=== PATIENT | male | born 1955 | race Caucasian/White ===

== ENCOUNTER 2019-04-21 18:23 | Emergency (ER) | payer BC, MEDICAID, MEDICARE, OTHER ==
[2019-04-21] MEDS ORDERED: Nitroglycerin 0.4 MG Tab.SL SL PRN (19:04)
[2019-04-21] MEDS ORDERED: Morphine 4 MG/ML Syringe IVPUSH PRN (19:04)
--- NOTE | 2019-04-21 19:09 | EDM.PDOC ---
ED HPI GENERAL MEDICAL PROBLEM - General Chief Complaint: Chest Pain Stated Complaint: HIGH BP AND L SHOULDER PAIN Time Seen by Provider: 04/21/19 18:36 Source of Information: Reports: Patient, Family, RN Notes Reviewed History Limitations: Reports: No Limitations - History of Present Illness INITIAL COMMENTS - FREE TEXT/NARRATIVE: 63-year-old gentleman presents emergency department today complaint of chest pain, he describes the chest pain and left side of his chest with radiation down the arm and up into the neck. He states started about 4 hours ago no diaphoresis no nausea vomiting he does not feel more short of breath than usual. Does have past medical history of COPD as well as coronary artery disease and myocardial infarction in the past 8 Pain Score (Numeric/FACES): 0 - Related Data Allergies Allergy/AdvReac Type Severity Reaction Status Date / Time No Known Allergies Allergy Verified 04/21/19 18:33 Home Meds: Home Meds Albuterol Sulfate [Albuterol Sulfate Hfa] 2 puff INH Q6H PRN 04/21/19 [History] Allopurinol [Zyloprim] 300 mg PO DAILY 04/21/19 [History] Aspirin [Lite Coat Aspirin] 1 tab PO DAILY 04/21/19 [History] Budesonide/Formoterol [Symbicort 160-4.5 MCG] 2 puff INH BID 04/21/19 [History] Cholecalciferol (Vitamin D3) [D3-2000] 400 units PO BID 04/21/19 [History] Clotrimazole [Clotrimazole 1%] 1 dose TOP BID PRN 04/21/19 [History] Hydrophilic Ointment [Hydrophilic] 120 gm TP QID PRN 04/21/19 [History] Lisinopril 1 tab PO DAILY 04/21/19 [History] Omeprazole 20 mg PO DAILY 04/21/19 [History] Sildenafil Citrate 50 mg PO ASDIRECTED PRN 04/21/19 [History] Tiotropium [Spiriva HandiHaler] 2 puff INH DAILY 04/21/19 [History] atorvaSTATin [Lipitor] 80 mg PO DAILY 04/21/19 [History] Past Medical History Cardiovascular History: Reports: CAD, High Cholesterol, Hypertension, [place], Stents Respiratory History: Reports: COPD Musculoskeletal History: Reports: Gout Dermatologic History: Reports: Urticaria - Past Surgical History Cardiovascular Surgical History: Reports: AAA Repair, Coronary Artery Stent GI Surgical History: Reports: Cholecystectomy Social & Family History - Tobacco Use Smoking Status *Q: Current Every Day Smoker Years of Tobacco use: 45 Packs/Tins Daily: 1 ED ROS GENERAL - Review of Systems Review Of Systems: See Below Constitutional: Reports: No Symptoms HEENT: Reports: No Symptoms Respiratory: Reports: No Symptoms Cardiovascular: Reports: Chest Pain GI/Abdominal: Reports: No Symptoms ED EXAM, GENERAL - Physical Exam Exam: See Below Exam Limited By: No Limitations General Appearance: Alert, WD/WN, No Apparent Distress Neck: Normal Inspection, Supple, Non-Tender, Full Range of Motion Respiratory/Chest: No Respiratory Distress, No Accessory Muscle Use, Decreased Breath Sounds, Wheezing, Other (Tender with palpitations) Cardiovascular: Regular Rate, Rhythm, No Murmur GI/Abdominal: Soft, Non-Tender Extremities: Normal Range of Motion, Non-Tender, No Pedal Edema Course - Vital Signs Last Recorded V/S: Last Vital Signs Temp 97.9 F 04/21/19 23:00 Pulse 90 04/21/19 23:00 Resp 14 04/21/19 23:00 BP 141/89 H 04/21/19 23:00 Pulse Ox 94 L 04/21/19 23:00 - Orders/Labs/Meds Orders: Active Orders 24 hr Category Date Time Status Cardiac Monitoring [RC] .As Directed Care 04/21/19 19:04 Active Communication Order [RC] STAT Care 04/21/19 19:06 Active EKG Documentation Completion [RC] ASDIRECTED Care 04/21/19 19:05 Active Peripheral IV Care [RC] . DIRECTED Care 04/21/19 19:05 Active Morphine Med 04/21/19 19:04 Active 4 mg IVPUSH Q10M PRN Nitroglycerin [Nitrostat] Med 04/21/19 19:04 Active 0.4 mg SL Q5M PRN Sodium Chloride 0.9% [Saline Flush] Med 04/21/19 19:04 Active 10 ml FLUSH ASDIRECTED PRN Peripheral IV Insertion Adult [OM.PC] Stat Oth 04/21/19 19:04 Ordered Saline Lock Insert [OM.PC] Stat Oth 04/21/19 19:04 Ordered EKG 12 Lead [EK] Stat Ther 04/21/19 19:05 Ordered Medication Orders Morphine Sulfate (Morphine) 4 mg IVPUSH Q10M PRN PRN Reason: Chest Pain Stop: 04/22/19 19:05 Last Admin: 04/21/19 19:22 Dose: 4 mg Nitroglycerin (Nitrostat) 0.4 mg SL Q5M PRN PRN Reason: Chest Pain Stop: 04/22/19 19:05 Last Admin: 04/21/19 19:21 Dose: 0.4 mg Sodium Chloride (Saline Flush) 10 ml FLUSH ASDIRECTED PRN PRN Reason: Keep Vein Open Last Admin: 04/21/19 19:24 Dose: 10 ml Admin: 04/21/19 19:21 Dose: 10 ml Labs: Laboratory Tests 04/21/19 04/21/19 04/21/19 Range/Units 19:15 19:15 19:15 WBC 10.4 (4.5-11.0) K/uL RBC 5.34 (4.30-5.90) M/uL Hgb 16.4 H (12.0-15.0) g/dL Hct 50.5 (40.0-54.0) % MCV 95 (80-98) fL MCH 31 (27-31) pg MCHC 33 (32-36) % Plt Count 212 (150-400) K/uL Neut % (Auto) 44 (36-66) % Lymph % (Auto) 39 (24-44) % [place] % (Auto) 12 H (2-6) % Eos % (Auto) 4 (2-4) % Baso % (Auto) 1 (0-1) % Sodium 142 (140-148) mmol/L Potassium 4.8 (3.6-5.2) mmol/L Chloride 106 (100-108) mmol/L Carbon Dioxide 29 (21-32) mmol/L Anion Gap 7.1 (5.0-14.0) mmol/L BUN 13 (7-18) mg/dL Creatinine 0.9 (0.8-1.3) mg/dL Est Cr Clr Drug Dosing 93.71 mL/min Estimated GFR (MDRD) > 60 (>60) Glucose 104 (74-106) mg/dL Lactic Acid 2.2 H (0.4-2.0) mmol/L Calcium 9.5 (8.5-10.1) mg/dL Total Bilirubin 0.9 (0.2-1.0) mg/dL AST 21 (15-37) U/L ALT 26 (12-78) U/L Alkaline Phosphatase 116 (46-116) U/L Troponin I < 0.017 (0.000-0.056) ng/mL Total Protein 7.7 (6.4-8.2) g/dL Albumin 3.8 (3.4-5.0) g/dL Globulin 3.9 H (2.3-3.5) g/dL Albumin/Globulin Ratio 1.0 L (1.2-2.2) 04/21/19 Range/Units 23:25 WBC (4.5-11.0) K/uL RBC (4.30-5.90) M/uL Hgb (12.0-15.0) g/dL Hct (40.0-54.0) % MCV (80-98) fL MCH (27-31) pg MCHC (32-36) % Plt Count (150-400) K/uL Neut % (Auto) (36-66) % Lymph % (Auto) (24-44) % [place] % (Auto) (2-6) % Eos % (Auto) (2-4) % Baso % (Auto) (0-1) % Sodium (140-148) mmol/L Potassium (3.6-5.2) mmol/L Chloride (100-108) mmol/L Carbon Dioxide (21-32) mmol/L Anion Gap (5.0-14.0) mmol/L BUN (7-18) mg/dL Creatinine (0.8-1.3) mg/dL Est Cr Clr Drug Dosing mL/min Estimated GFR (MDRD) (>60) Glucose (74-106) mg/dL Lactic Acid (0.4-2.0) mmol/L Calcium (8.5-10.1) mg/dL Total Bilirubin (0.2-1.0) mg/dL AST (15-37) U/L ALT (12-78) U/L Alkaline Phosphatase (46-116) U/L Troponin I < 0.017 (0.000-0.056) ng/mL Total Protein (6.4-8.2) g/dL Albumin (3.4-5.0) g/dL Globulin (2.3-3.5) g/dL Albumin/Globulin Ratio (1.2-2.2) Meds: Medications Generic Name Dose Route Start Last Admin Trade Name Freq PRN Reason Stop Dose Admin Morphine Sulfate 4 mg 04/21/19 19:04 04/21/19 19:22 Morphine IVPUSH 04/22/19 19:05 4 mg Q10M PRN Administration Chest Pain Nitroglycerin 0.4 mg 04/21/19 19:04 04/21/19 19:21 Nitrostat SL 04/22/19 19:05 0.4 mg Q5M PRN Administration Chest Pain Sodium Chloride 10 ml 04/21/19 19:04 04/21/19 19:24 Saline Flush FLUSH 10 ml ASDIRECTED PRN Administration Keep Vein Open - Re-Assessments/Exams Free Text/Narrative Re-Assessment/Exam: 04/21/19 20:10 heart score is 4 moderate risk, EDACS 21 not low risk Departure - Departure Time of Disposition: 00:08 Disposition: Home, Self-Care 01 Condition: Fair Clinical Impression: Atypical chest pain Referrals: PCP,None [Primary Care Provider] - Forms: ED Department Discharge Additional Instructions: Use Tylenol or Motrin as needed for pain control, Please followup with your primary care provider in 3-5 days if not better, please call return to the emergency department with worsening of symptoms. - My Orders Last 24 Hours: My Active Orders 04/21/19 19:04 Cardiac Monitoring [RC] .As Directed Morphine 4 mg IVPUSH Q10M PRN Nitroglycerin [Nitrostat] 0.4 mg SL Q5M PRN Sodium Chloride 0.9% [Saline Flush] 10 ml FLUSH ASDIRECTED PRN Peripheral IV Insertion Adult [OM.PC] Stat Saline Lock Insert [OM.PC] Stat 04/21/19 19:05 EKG Documentation Completion [RC] ASDIRECTED Peripheral IV Care [RC] . DIRECTED EKG 12 Lead [EK] Stat 04/21/19 19:06 Communication Order [RC] STAT - Assessment/Plan Last 24 Hours: My Active Orders 04/21/19 19:04 Cardiac Monitoring [RC] .As Directed Morphine 4 mg IVPUSH Q10M PRN Nitroglycerin [Nitrostat] 0.4 mg SL Q5M PRN Sodium Chloride 0.9% [Saline Flush] 10 ml FLUSH ASDIRECTED PRN Peripheral IV Insertion Adult [OM.PC] Stat Saline Lock Insert [OM.PC] Stat 04/21/19 19:05 EKG Documentation Completion [RC] ASDIRECTED Peripheral IV Care [RC] . DIRECTED EKG 12 Lead [EK] Stat 04/21/19 19:06 Communication Order [RC] STAT Plan: Assessment Acuity = acute Site and laterality = atypical chest pain Etiology = unknown etiology Manifestations = none Location of injury = Home Lab values = CBC, CMP, troponin negative 2 EKG demonstrates sinus rhythm no signs of ischemia chest x-ray unremarkable Plan He remained chest pain-free after initial treatment, him follow-up with his primary care in next 3-5 days for further evaluation This note was dictated using [employer] voice recognition software please call with any questions on syntax or grammar.
[2019-04-21] MEDS: Sodium Chloride 0.9% 10 ML Syringe FLUSH PRN ×2 (19:21→19:24)
--- NOTE | 2019-04-21 19:49 | CRLCR ---
INDICATION: CHEST PAIN TECHNIQUE: Chest 1 view. COMPARISON: None. FINDINGS: Cardiovascular and mediastinum: Heart size and vasculature are normal in caliber and appearance. Mediastinum is within normal limits. Lungs and pleural space: Lungs are clear. No sign of infiltrate or mass. No sign of pleural effusion. No pneumothorax. Bones and soft tissues: No significant findings. IMPRESSION: Unremarkable chest. Dictated by: Alexander Wild MD @ 04/21/2019 19:47:15 (Electronically Signed)
== END 2019-04-22 00:20 | disposition home or self-care (01) ==
LOC: JP.ED 18:23
DX: R07.89 Other chest pain (principal); J44.9 Chronic obstructive pulmonary disease, unspecified; I10 Essential (primary) hypertension; I25.2 Old myocardial infarction; E78.00 Pure hypercholesterolemia, unspecified; F17.210 Nicotine dependence, cigarettes, uncomplicated; Z79.51 Long term (current) use of inhaled steroids; Z79.899 Other long term (current) drug therapy; Z90.49 Acquired absence of other specified parts of digestive tract
CPT/HCPCS: 36415; 71045; 80053; 83605; 84484; 85025; 93005; 96374; 99285; A9270; J2270

== ENCOUNTER 2019-05-27 07:07 | Emergency (ER) | payer OTHER ==
[2019-05-27] MEDS ORDERED: Sodium Chloride 0.9% 10 ML Syringe FLUSH PRN (07:35)
[2019-05-27] MEDS ORDERED: cefTRIAXone 1 GM in Sodium Chloride 0.9% 50 ML IV ONE ×2 (07:39→08:00)
[2019-05-27] MEDS ORDERED: Albuterol/Ipratropium 3.0-0.5 MG/3 ML Neb Soln NEB ONE (07:39)
[2019-05-27] MEDS ORDERED: methylPREDNISolone Sodium Succinate 125 MG/2 ML SDV IVPUSH ONE (07:39)
--- NOTE | 2019-05-27 07:42 | EDM.PDOC ---
ED HPI GENERAL MEDICAL PROBLEM - General Chief Complaint: Respiratory Problem Stated Complaint: SOB Time Seen by Provider: 05/27/19 07:30 Source of Information: Reports: Patient, Family, RN Notes Reviewed History Limitations: Reports: No Limitations - History of Present Illness INITIAL COMMENTS - FREE TEXT/NARRATIVE: 63-year-old gentleman presents emergency department today complaint of shortness of breath and fever, he has a known history of COPD last used his didn 't realize or treatment this morning around 5 AM. He states this started about 3 days prior fever cough no sputum production and body aches. He did receive a flu shot 6 days ago Generalized Pain Score (Numeric/FACES): 9 - Related Data Allergies Allergy/AdvReac Type Severity Reaction Status Date / Time No Known Allergies Allergy Verified 05/27/19 07:19 Home Meds: Home Meds Albuterol Sulfate [Albuterol Sulfate Hfa] 2 puff INH Q6H PRN 04/21/19 [History] Allopurinol [Zyloprim] 300 mg PO DAILY 04/21/19 [History] Aspirin [Lite Coat Aspirin] 1 tab PO DAILY 04/21/19 [History] Budesonide/Formoterol [Symbicort 160-4.5 MCG] 2 puff INH BID 04/21/19 [History] Cholecalciferol (Vitamin D3) [D3-2000] 400 units PO BID 04/21/19 [History] Clotrimazole [Clotrimazole 1%] 1 dose TOP BID PRN 04/21/19 [History] Hydrophilic Ointment [Hydrophilic] 120 gm TP QID PRN 04/21/19 [History] Lisinopril 1 tab PO DAILY 04/21/19 [History] Omeprazole 20 mg PO DAILY 04/21/19 [History] Sildenafil Citrate 50 mg PO ASDIRECTED PRN 04/21/19 [History] Tiotropium [Spiriva HandiHaler] 2 puff INH DAILY 04/21/19 [History] atorvaSTATin [Lipitor] 80 mg PO DAILY 04/21/19 [History] Azithromycin 250 mg PO DAILY #4 tablet 05/27/19 [Rx] Metoprolol Succinate 100 mg PO DAILY 05/27/19 [History] guaiFENesin [Guaifenesin] 200 mg PO Q4H PRN #30 tablet 05/27/19 [Rx] predniSONE 10 mg PO DAILY 05/27/19 [History] predniSONE [Prednisone] 20 mg PO DAILY #4 tablet 05/27/19 [Rx] Past Medical History HEENT History: Reports: Impaired Vision Cardiovascular History: Reports: CAD, High Cholesterol, Hypertension, [place], Stents Respiratory History: Reports: COPD, SOB Musculoskeletal History: Reports: Gout Dermatologic History: Reports: Urticaria - Past Surgical History Head Surgeries/Procedures: Reports: None HEENT Surgical History: Reports: Adenoidectomy, Tonsillectomy Cardiovascular Surgical History: Reports: AAA Repair, Coronary Artery Stent Respiratory Surgical History: Reports: None GI Surgical History: Reports: Cholecystectomy Musculoskeletal Surgical History: Reports: None Dermatological Surgical History: Reports: None Social & Family History - Tobacco Use Smoking Status *Q: Current Every Day Smoker Years of Tobacco use: 50 Packs/Tins Daily: 1 Used Tobacco, but Quit: No Second Hand Smoke Exposure: Yes - Caffeine Use Caffeine Use: Reports: Coffee, Soda - Recreational Drug Use Recreational Drug Use: No ED ROS GENERAL - Review of Systems Review Of Systems: See Below Constitutional: Reports: Fever, Chills, Other (Body aches) HEENT: Reports: Throat Pain Respiratory: Reports: Shortness of Breath, Wheezing, Cough. Denies: Sputum Cardiovascular: Reports: Chest Pain, Dyspnea on Exertion GI/Abdominal: Reports: No Symptoms : Reports: No Symptoms Musculoskeletal: Reports: No Symptoms Skin: Reports: No Symptoms Neurological: Reports: No Symptoms Psychiatric: Reports: No Symptoms ED EXAM, GENERAL - Physical Exam Exam: See Below Free Text/Narrative:: General: Male, not in any distress, alert and oriented x3 HEENT: head is atraumatic normocephalic, eyes pupils equal round reactive to light, sclera clear no conjunctivitis appreciated. Ears tympanic membranes clear and slater landmarks and light reflex are present bilaterally canals are clear. Nose no septal deviation, nares are clear, no blood present. Mouth mucosa is moist and pink no erythema or exudate noted in soft palate, tongue is midline uvula is midline, dentition is intact. Neck: Supple no thyromegaly no tracheal deviation. Nodes: Cervical nodes subclavicular nodes nontender no palpable lymphadenopathy noted. Lungs: Decreased breath sounds with expiratory wheeze bilaterally CV: Regular rate and rhythm S1 and S2 appreciated no murmurs rubs or gallops noted. Abdomen: Soft, nontender, no palpable masses or organomegaly appreciated, no distention no guarding bowel sounds are present, Neuro: GCS 15 Skin: Warm and dry, intact Extremities: No lower extremity edema appreciated, Course - Vital Signs Last Recorded V/S: Last Vital Signs Temp 100.3 F 05/27/19 08:50 Pulse 91 05/27/19 09:15 Resp 19 05/27/19 09:15 BP 103/78 05/27/19 09:15 Pulse Ox 90 L 05/27/19 09:15 - Orders/Labs/Meds Orders: Active Orders 24 hr Category Date Time Status Peripheral IV Care [RC] . DIRECTED Care 05/27/19 07:37 Active RT Aerosol Therapy [RC] ASDIRECTED Care 05/27/19 07:39 Active Vital Signs [RC] Q1H Care 05/27/19 07:36 Active CULTURE BLOOD [BC] Urgent Lab 05/27/19 07:41 Received CULTURE BLOOD [BC] Urgent Lab 05/27/19 07:49 Received UA W/MICROSCOPIC [URIN] Routine Lab 05/27/19 07:35 Ordered Azithromycin [Zithromax] 500 mg Med 05/27/19 09:30 Active Sodium Chloride 0.9% [Normal Saline] 250 ml IV ONETIME Lactated Ringers [Ringers, Lactated] 1,000 ml Med 05/27/19 07:45 Active IV ASDIRECTED Sodium Chloride 0.9% [Saline Flush] Med 05/27/19 07:35 Active 10 ml FLUSH ASDIRECTED PRN Blood Culture x2 Reflex Set [OM.PC] Urgent Oth 05/27/19 07:36 Ordered Peripheral IV Insertion Adult [OM.PC] Urgent Oth 05/27/19 07:35 Ordered Medication Orders Lactated Ringer's (Ringers, Lactated) 1,000 mls @ 999 mls/hr IV ASDIRECTED MARIE Last Admin: 05/27/19 07:45 Dose: 999 mls/hr Azithromycin 500 mg/ Sodium (Chloride) 250 mls @ 250 mls/hr IV ONETIME ONE Stop: 05/27/19 10:29 Last Admin: 05/27/19 09:34 Dose: 250 mls/hr Sodium Chloride (Saline Flush) 10 ml FLUSH ASDIRECTED PRN PRN Reason: Keep Vein Open Last Admin: 05/27/19 07:46 Dose: 10 ml Labs: Laboratory Tests 05/27/19 05/27/19 05/27/19 Range/Units 07:49 07:49 07:49 WBC 16.0 H (4.5-11.0) K/uL RBC 5.00 (4.30-5.90) M/uL Hgb 15.4 H (12.0-15.0) g/dL Hct 47.4 (40.0-54.0) % MCV 95 (80-98) fL MCH 31 (27-31) pg MCHC 33 (32-36) % Plt Count 174 (150-400) K/uL Neut % (Auto) 66 (36-66) % Lymph % (Auto) 22 L (24-44) % [place] % (Auto) 10 H (2-6) % Eos % (Auto) 1 L (2-4) % Baso % (Auto) 1 (0-1) % Sodium 136 L (140-148) mmol/L Potassium 4.3 (3.6-5.2) mmol/L Chloride 102 (100-108) mmol/L Carbon Dioxide 24 (21-32) mmol/L Anion Gap 14.3 H (5.0-14.0) mmol/L BUN 17 (7-18) mg/dL Creatinine 1.3 (0.8-1.3) mg/dL Est Cr Clr Drug Dosing 65.81 mL/min Estimated GFR (MDRD) 56 L (>60) Glucose 153 H (74-106) mg/dL Lactic Acid (0.4-2.0) mmol/L Calcium 9.1 (8.5-10.1) mg/dL Total Bilirubin 0.9 (0.2-1.0) mg/dL AST 18 (15-37) U/L ALT 38 (12-78) U/L Alkaline Phosphatase 75 (46-116) U/L Troponin I < 0.017 (0.000-0.056) ng/mL C-Reactive Protein 16.17 H (0.0-0.3) mg/dL Total Protein 6.9 (6.4-8.2) g/dL Albumin 3.0 L (3.4-5.0) g/dL Globulin 3.9 H (2.3-3.5) g/dL Albumin/Globulin Ratio 0.8 L (1.2-2.2) Procalcitonin 0.17 ng/mL 05/27/19 Range/Units 07:49 WBC (4.5-11.0) K/uL RBC (4.30-5.90) M/uL Hgb (12.0-15.0) g/dL Hct (40.0-54.0) % MCV (80-98) fL MCH (27-31) pg MCHC (32-36) % Plt Count (150-400) K/uL Neut % (Auto) (36-66) % Lymph % (Auto) (24-44) % [place] % (Auto) (2-6) % Eos % (Auto) (2-4) % Baso % (Auto) (0-1) % Sodium (140-148) mmol/L Potassium (3.6-5.2) mmol/L Chloride (100-108) mmol/L Carbon Dioxide (21-32) mmol/L Anion Gap (5.0-14.0) mmol/L BUN (7-18) mg/dL Creatinine (0.8-1.3) mg/dL Est Cr Clr Drug Dosing mL/min Estimated GFR (MDRD) (>60) Glucose (74-106) mg/dL Lactic Acid 2.2 H (0.4-2.0) mmol/L Calcium (8.5-10.1) mg/dL Total Bilirubin (0.2-1.0) mg/dL AST (15-37) U/L ALT (12-78) U/L Alkaline Phosphatase (46-116) U/L Troponin I (0.000-0.056) ng/mL C-Reactive Protein (0.0-0.3) mg/dL Total Protein (6.4-8.2) g/dL Albumin (3.4-5.0) g/dL Globulin (2.3-3.5) g/dL Albumin/Globulin Ratio (1.2-2.2) Procalcitonin ng/mL Meds: Medications Generic Name Dose Route Start Last Admin Trade Name Freq PRN Reason Stop Dose Admin Lactated Ringer's 1,000 mls @ 999 mls/hr 05/27/19 07:45 05/27/19 07:45 Ringers, Lactated IV 999 mls/hr ASDIRECTED MARIE Administration Azithromycin 500 mg/ Sodium 250 mls @ 250 mls/hr 05/27/19 09:30 05/27/19 09: 34 Chloride IV 05/27/19 10:29 250 mls/hr ONETIME ONE Administration Sodium Chloride 10 ml 05/27/19 07:35 05/27/19 07:46 Saline Flush FLUSH 10 ml ASDIRECTED PRN Administration Keep Vein Open Discontinued Medications Generic Name Dose Route Start Last Admin Trade Name Coleman PRN Reason Stop Dose Admin Acetaminophen 650 mg 05/27/19 08:41 05/27/19 08:50 Tylenol PO 05/27/19 08:42 650 mg NOW ONE Administration Albuterol/Ipratropium 3 ml 05/27/19 07:39 05/27/19 07:52 Duoneb 3.0-0.5 Mg/3 Ml NEB 05/27/19 07:40 3 ml ONETIME ONE Administration Ceftriaxone Sodium 1 gm/ 50 mls @ 100 mls/hr 05/27/19 08:00 05/27/19 07:59 Sodium Chloride IV 05/27/19 08:29 100 mls/hr ONETIME ONE Administration Methylprednisolone Sodium Succinate 125 mg 05/27/19 07:39 05/27/19 07:54 Solu-Medrol IVPUSH 05/27/19 07:40 125 mg ONETIME ONE Administration - Re-Assessments/Exams Free Text/Narrative Re-Assessment/Exam: 05/27/19 09:10 curb-65 score is low risk Departure - Departure Time of Disposition: 10:11 Disposition: Home, Self-Care 01 Condition: Fair Clinical Impression: CAP (community acquired pneumonia) Qualifiers: Laterality: left Lung location: upper lobe of lung Qualified Code(s): J18.1 - Lobar pneumonia, unspecified organism - Discharge Information Prescriptions: Azithromycin 250 mg PO DAILY #4 tablet guaiFENesin [Guaifenesin] 200 mg PO Q4H PRN #30 tablet PRN Reason: Cough predniSONE [Prednisone] 20 mg PO DAILY #4 tablet Referrals: Allie Vela MD [Primary Care Provider] - Forms: ED Department Discharge Additional Instructions: Take full course of antibiotics start tomorrow, take full course of prednisone start tomorrow, use guaifenesin as needed every 4 hours use your albuterol inhaler as needed every 2 hours, Please followup with your primary care provider in 3-5 days if not better, please call return to the emergency department with worsening of symptoms. Your medications have been faxed to [facility] - My Orders Last 24 Hours: My Active Orders 05/27/19 07:35 UA W/MICROSCOPIC [URIN] Routine Sodium Chloride 0.9% [Saline Flush] 10 ml FLUSH ASDIRECTED PRN Peripheral IV Insertion Adult [OM.PC] Urgent 05/27/19 07:36 Vital Signs [RC] Q1H Blood Culture x2 Reflex Set [OM.PC] Urgent 05/27/19 07:37 Peripheral IV Care [RC] . DIRECTED 05/27/19 07:39 RT Aerosol Therapy [RC] ASDIRECTED 05/27/19 07:41 CULTURE BLOOD [BC] Urgent 05/27/19 07:45 Lactated Ringers [Ringers, Lactated] 1,000 ml IV ASDIRECTED 05/27/19 07:49 CULTURE BLOOD [BC] Urgent 05/27/19 09:30 Azithromycin [Zithromax] 500 mg Sodium Chloride 0.9% [Normal Saline] 250 ml IV ONETIME - Assessment/Plan Last 24 Hours: My Active Orders 05/27/19 07:35 UA W/MICROSCOPIC [URIN] Routine Sodium Chloride 0.9% [Saline Flush] 10 ml FLUSH ASDIRECTED PRN Peripheral IV Insertion Adult [OM.PC] Urgent 05/27/19 07:36 Vital Signs [RC] Q1H Blood Culture x2 Reflex Set [OM.PC] Urgent 05/27/19 07:37 Peripheral IV Care [RC] . DIRECTED 05/27/19 07:39 RT Aerosol Therapy [RC] ASDIRECTED 05/27/19 07:41 CULTURE BLOOD [BC] Urgent 05/27/19 07:45 Lactated Ringers [Ringers, Lactated] 1,000 ml IV ASDIRECTED 05/27/19 07:49 CULTURE BLOOD [BC] Urgent 05/27/19 09:30 Azithromycin [Zithromax] 500 mg Sodium Chloride 0.9% [Normal Saline] 250 ml IV ONETIME Plan: Assessment Acuity = acute Site and laterality = community-acquired pneumonia complicated patient with known history of chronic obstructive pulmonary disease Etiology = probable bacterial cause Manifestations = cough, fever Location of injury = Home Lab values = WBC elevated 16.0 consistent leukocytosis, lactic acid slightly elevated 2.2 consistent lactic acidosis, troponin is negative CMP unremarkable CRP elevated 16.17 pro-Esteban calcitonin slightly elevated 0.17 chest x-ray shows left upper lobe pneumonia EKG demonstrates a sinus rhythm Plan no signs of ischemia I did review lab work EKG results them discuss with him options of hospital admission versus outpatient treatment he elected to try outpatient treatment first therefore antibiotics of azithromycin 250 mg 4 days plus prednisone 20 mg for 4 days starting tomorrow prescription also written for guaifenesin 200 mg every 4 hours as needed. Follow up with his jboss architect next week This note was dictated using [employer] voice recognition software please call with any questions on syntax or grammar.
[2019-05-27] MEDS ORDERED: Lactated Ringers 1,000 ML IV SCH (07:45)
[2019-05-27] MEDS ORDERED: Acetaminophen 325 MG Tab PO ONE (08:41)
--- NOTE | 2019-05-27 08:50 | CR ---
CHEST: 2 view CLINICAL HISTORY:SOB COMPARISON:March 2019 FINDINGS: Heart size and pulmonary vascularity are normal. There is patchy density in the left upper lobe and lingula. No effusion is seen. Lungs are generally hyperaerated Impression: Left upper lobe infiltrate superimposed over COPD.
[2019-05-27] MEDS ORDERED: Azithromycin 500 MG in Sodium Chloride 0.9% 250 ML IV ONE ×2 (09:08→09:30)
== END 2019-05-27 10:41 | disposition home or self-care (01) ==
LOC: JP.ED 07:07
DX: J18.1 Lobar pneumonia, unspecified organism (principal); J44.9 Chronic obstructive pulmonary disease, unspecified; I10 Essential (primary) hypertension; E78.00 Pure hypercholesterolemia, unspecified; I25.2 Old myocardial infarction; I25.10 Atherosclerotic heart disease of native coronary artery without angina pectoris; F17.210 Nicotine dependence, cigarettes, uncomplicated; Z79.51 Long term (current) use of inhaled steroids; Z79.899 Other long term (current) drug therapy; Z95.5 Presence of coronary angioplasty implant and graft
CPT/HCPCS: 36415; 71046; 71046-26; 80053; 83605; 84145; 84484; 85025; 86140; 87040; 87804; 87804-59; 94640; 96365; 96367; 96375; 99285-25; A9270-GY; J0456; J0696; J2930; J7050; J7120; J7620-GY

== ENCOUNTER 2019-06-25 07:19 | Emergency (ER) | payer OTHER ==
--- NOTE | 2019-06-25 08:04 | EDM.PDOC ---
ED HPI GENERAL MEDICAL PROBLEM - General Chief Complaint: Headache Stated Complaint: HEADACHE AND VISION IS POOR Time Seen by Provider: 06/25/19 07:36 Source of Information: Reports: Patient, RN Notes Reviewed History Limitations: Reports: No Limitations - History of Present Illness INITIAL COMMENTS - FREE TEXT/NARRATIVE: 63-year-old gentleman presents emergency department today complaint of headache on the left side with loss of vision in the right side of. He states at midnight he was normal no difficulties head went to bed woke up at approximately 1 AM with a headache took 1500 mg of Tylenol had noticed some vision loss at that time but returned to bed. He reported to the emergency department this morning at 8 AM no other functional complaints Left Headache Pain Score (Numeric/FACES): 10 - Related Data Allergies Allergy/AdvReac Type Severity Reaction Status Date / Time No Known Allergies Allergy Verified 05/27/19 07:19 Home Meds: Home Meds Albuterol Sulfate [Albuterol Sulfate Hfa] 2 puff INH Q6H PRN 04/21/19 [History] Allopurinol [Zyloprim] 300 mg PO DAILY 04/21/19 [History] Aspirin [Lite Coat Aspirin] 1 tab PO DAILY 04/21/19 [History] Budesonide/Formoterol [Symbicort 160-4.5 MCG] 2 puff INH BID 04/21/19 [History] Cholecalciferol (Vitamin D3) [D3-2000] 400 units PO BID 04/21/19 [History] Clotrimazole [Clotrimazole 1%] 1 dose TOP BID PRN 04/21/19 [History] Hydrophilic Ointment [Hydrophilic] 120 gm TP QID PRN 04/21/19 [History] Lisinopril 1 tab PO DAILY 04/21/19 [History] Omeprazole 20 mg PO DAILY 04/21/19 [History] Sildenafil Citrate 50 mg PO ASDIRECTED PRN 04/21/19 [History] Tiotropium [Spiriva HandiHaler] 2 puff INH DAILY 04/21/19 [History] atorvaSTATin [Lipitor] 80 mg PO DAILY 04/21/19 [History] Metoprolol Succinate 100 mg PO DAILY 05/27/19 [History] guaiFENesin [Guaifenesin] 200 mg PO Q4H PRN #30 tablet 05/27/19 [Rx] predniSONE 10 mg PO DAILY PRN 05/27/19 [History] Past Medical History HEENT History: Reports: Impaired Vision Cardiovascular History: Reports: CAD, High Cholesterol, Hypertension, [place], Stents Respiratory History: Reports: COPD, SOB Musculoskeletal History: Reports: Gout Dermatologic History: Reports: Urticaria - Past Surgical History Head Surgeries/Procedures: Reports: None HEENT Surgical History: Reports: Adenoidectomy, Tonsillectomy Cardiovascular Surgical History: Reports: AAA Repair, Coronary Artery Stent Respiratory Surgical History: Reports: None GI Surgical History: Reports: Cholecystectomy Musculoskeletal Surgical History: Reports: None Dermatological Surgical History: Reports: None Social & Family History - Tobacco Use Smoking Status *Q: Heavy Tobacco Smoker Years of Tobacco use: 50 Packs/Tins Daily: 1 - Caffeine Use Caffeine Use: Reports: Coffee - Recreational Drug Use Recreational Drug Use: No ED ROS GENERAL - Review of Systems Review Of Systems: See Below Constitutional: Reports: No Symptoms HEENT: Reports: Vision Change Respiratory: Reports: No Symptoms Cardiovascular: Reports: No Symptoms GI/Abdominal: Reports: No Symptoms Neurological: Reports: No Symptoms ED EXAM, NEURO - Physical Exam Exam: See Below Text/Narrative:: Visual field he demonstrates loss superior inferior quadrants lateral on the right eye also loss of medial superior quadrant left eye consistent with a right homonymous hemianopsia Exam Limited By: No Limitations General Appearance: Alert, WD/WN, No Apparent Distress Eye Exam: Bilateral Eye: EOMI, Normal Inspection, PERRL, Vision Changes Neck: Normal Inspection, Supple, Non-Tender, Full Range of Motion Respiratory/Chest: No Respiratory Distress, Lungs Clear, Normal Breath Sounds, No Accessory Muscle Use, Chest Non-Tender Cardiovascular: Regular Rate, Rhythm, No Murmur Neurological: Alert, Normal Mood/Affect, CN II-XII Intact, Normal Gait, No Motor /Sensory Deficits, Oriented x 3 Course - Vital Signs Last Recorded V/S: Last Vital Signs Temp 97.8 F 06/25/19 07:29 Pulse 73 06/25/19 09:02 Resp 16 06/25/19 09:02 BP 145/74 H 06/25/19 09:02 Pulse Ox 96 06/25/19 09:02 - Orders/Labs/Meds Orders: Active Orders 24 hr Category Date Time Status EKG Documentation Completion [RC] ASDIRECTED Care 06/25/19 07:55 Active EKG 12 Lead [EK] Urgent Ther 06/25/19 07:54 Ordered Labs: Laboratory Tests 06/25/19 06/25/19 06/25/19 Range/Units 08:15 08:15 08:15 WBC 16.7 H (4.5-11.0) K/uL RBC 4.88 (4.30-5.90) M/uL Hgb 14.9 (12.0-15.0) g/dL Hct 46.7 (40.0-54.0) % MCV 96 (80-98) fL MCH 31 (27-31) pg MCHC 32 (32-36) % Plt Count 291 (150-400) K/uL Neut % (Auto) 49 (36-66) % Lymph % (Auto) 38 (24-44) % [place] % (Auto) 11 H (2-6) % Eos % (Auto) 2 (2-4) % Baso % (Auto) 0 (0-1) % PT 10.4 (9.5-12.0) sec INR 0.96 (0.80-1.20) APTT 23.6 L (27.0-36.0) sec Sodium 142 (140-148) mmol/L Potassium 4.1 (3.6-5.2) mmol/L Chloride 104 (100-108) mmol/L Carbon Dioxide 31 (21-32) mmol/L Anion Gap 7.2 (5.0-14.0) mmol/L BUN 13 (7-18) mg/dL Creatinine 1.1 (0.8-1.3) mg/dL Est Cr Clr Drug Dosing 76.67 mL/min Estimated GFR (MDRD) > 60 (>60) Glucose 106 (74-106) mg/dL Calcium 9.7 (8.5-10.1) mg/dL Total Bilirubin 0.3 D (0.2-1.0) mg/dL AST 19 (15-37) U/L ALT 37 (12-78) U/L Alkaline Phosphatase 83 (46-116) U/L Troponin I (0.000-0.056) ng/mL C-Reactive Protein 0.05 (0.0-0.3) mg/dL Total Protein 7.2 (6.4-8.2) g/dL Albumin 3.6 (3.4-5.0) g/dL Globulin 3.6 H (2.3-3.5) g/dL Albumin/Globulin Ratio 1.0 L (1.2-2.2) 06/25/19 Range/Units 08:15 WBC (4.5-11.0) K/uL RBC (4.30-5.90) M/uL Hgb (12.0-15.0) g/dL Hct (40.0-54.0) % MCV (80-98) fL MCH (27-31) pg MCHC (32-36) % Plt Count (150-400) K/uL Neut % (Auto) (36-66) % Lymph % (Auto) (24-44) % [place] % (Auto) (2-6) % Eos % (Auto) (2-4) % Baso % (Auto) (0-1) % PT (9.5-12.0) sec INR (0.80-1.20) APTT (27.0-36.0) sec Sodium (140-148) mmol/L Potassium (3.6-5.2) mmol/L Chloride (100-108) mmol/L Carbon Dioxide (21-32) mmol/L Anion Gap (5.0-14.0) mmol/L BUN (7-18) mg/dL Creatinine (0.8-1.3) mg/dL Est Cr Clr Drug Dosing mL/min Estimated GFR (MDRD) (>60) Glucose (74-106) mg/dL Calcium (8.5-10.1) mg/dL Total Bilirubin (0.2-1.0) mg/dL AST (15-37) U/L ALT (12-78) U/L Alkaline Phosphatase (46-116) U/L Troponin I < 0.017 (0.000-0.056) ng/mL C-Reactive Protein (0.0-0.3) mg/dL Total Protein (6.4-8.2) g/dL Albumin (3.4-5.0) g/dL Globulin (2.3-3.5) g/dL Albumin/Globulin Ratio (1.2-2.2) Meds: Medications Discontinued Medications Generic Name Dose Route Start Last Admin Trade Name Freq PRN Reason Stop Dose Admin Ketorolac Tromethamine 60 mg 06/25/19 08:49 06/25/19 08:53 Toradol IM 06/25/19 08:50 60 mg ONETIME ONE Administration Departure - Departure Time of Disposition: 09:17 Disposition: Home, Self-Care 01 Condition: Fair Clinical Impression: Right homonymous hemianopsia - Discharge Information Referrals: Allie Vela MD [Primary Care Provider] - Forms: ED Department Discharge - My Orders Last 24 Hours: My Active Orders 06/25/19 07:54 EKG 12 Lead [EK] Urgent 06/25/19 07:55 EKG Documentation Completion [RC] ASDIRECTED - Assessment/Plan Last 24 Hours: My Active Orders 06/25/19 07:54 EKG 12 Lead [EK] Urgent 06/25/19 07:55 EKG Documentation Completion [RC] ASDIRECTED Plan: Assessment Acuity = acute Site and laterality = right homonymous hemianopsia Etiology = concern for cerebrovascular accident Manifestations = none Location of injury = Home Lab values = WBC elevated 16.7 consistent leukocytosis, CMP unremarkable troponin was negative CT scan shows no acute process EKG demonstrates normal sinus rhythm with PVCs Plan Call discussed case with emergency room physician [facility] at 9 AM he kindly accept the patient in transport will be transported via [facility]. Also discussed case with Dr. Amaya at 910 from interventional radiology felt he was not a candidate for intervention at this time but did recommend CTA MRI which will be done at This note was dictated using [employer] voice recognition software please call with any questions on syntax or grammar.
--- NOTE | 2019-06-25 08:37 | CRLCT ---
INDICATION: Right homonymous hemianopsia TECHNIQUE: Noncontrast head CT. FINDINGS: Axial noncontrast images through the brain parenchyma demonstrates no acute intracranial hemorrhage or mass. No midline shift no abnormal extra-axial air fluid collections. Mucosal thickening of the ethmoid air cells. Paranasal sinuses mastoid air cells skull and scalp appear unremarkable. Impression: No acute intracranial hemorrhage or mass Please note that all CT scans at this facility use dose modulation, iterative reconstruction, and/or weight-based dosing when appropriate to reduce radiation dose to as low as reasonably achievable. Dictated by Stephanie Rosario MD @ Jun 25 2019 8:34AM Signed by Dr. Stephanie Rosario @ Jun 25 2019 8:36AM
[2019-06-25] MEDS: Ketorolac 60 MG/2 ML SDV IM ONE (08:53)
[2019-06-25] MEDS: fentaNYL 100 MCG/2 ML SDV IVPUSH ONE (09:21)
== END 2019-06-25 09:47 | disposition home or self-care (01) ==
LOC: JP.ED 07:19
DX: H53.461 Homonymous bilateral field defects, right side (principal); I25.10 Atherosclerotic heart disease of native coronary artery without angina pectoris; I10 Essential (primary) hypertension; I21.9 Acute myocardial infarction, unspecified; J44.9 Chronic obstructive pulmonary disease, unspecified; F17.210 Nicotine dependence, cigarettes, uncomplicated; Z95.5 Presence of coronary angioplasty implant and graft; Z79.899 Other long term (current) drug therapy; Z79.51 Long term (current) use of inhaled steroids
CPT/HCPCS: 36415; 70450; 80053; 84484; 85025; 85610; 85730; 86140; 93005; 93010; 96372; 96374; 99284-25; J1885; J3010

== ENCOUNTER 2021-01-09 00:33 | Emergency (ER) | payer OTHER ==
[2021-01-09] MEDS ORDERED: Sodium Chloride 0.9% 10 ML Syringe FLUSH PRN (00:37)
[2021-01-09] MEDS ORDERED: Aspirin 81 MG Tab.Chew PO ONE (00:38)
--- NOTE | 2021-01-09 00:47 | EDM.PDOC ---
ED HPI GENERAL MEDICAL PROBLEM - General Chief Complaint: Chest Pain Stated Complaint: HIGH HEART RATE Time Seen by Provider: 01/09/21 00:37 Source of Information: Reports: Patient History Limitations: Reports: No Limitations - History of Present Illness INITIAL COMMENTS - FREE TEXT/NARRATIVE: Seth is a 65-year-old male presenting to the ED for evaluation of chest pain. Patient symptoms started around 1700 hrs. tonight. Patient did not seek medical care because he was in [place] at that time. Patient has a history significant for coronary artery disease status post stents, cerebrovascular disease, abdominal aortic aneurysm status post stents, COPD, hypertension, and hyperlipidemia. He normally receives his care at the [facility] in [place]. He states in addition to the chest pain which is a 9 out of 10 in intensity, he is also experiencing tachycardia and dyspnea. The patient does have an implanted bean sprout grower that was placed for evaluation of possible arrhythmias. Patient did take a recording and sent it to the CT earlier tonight. Because he is a CT patient, we do not have much in the way of any information or access to his medical records. - Related Data Allergies Allergy/AdvReac Type Severity Reaction Status Date / Time No Known Allergies Allergy Verified 05/27/19 07:19 Home Meds: Home Meds Albuterol Sulfate [Albuterol Sulfate Hfa] 2 puff INH Q6H PRN 04/21/19 [History] Budesonide/Formoterol [Symbicort 160-4.5 MCG] 2 puff INH BID 04/21/19 [History] Cholecalciferol (Vitamin D3) [D3-2000] 400 units PO BID 04/21/19 [History] Clotrimazole [Clotrimazole 1%] 1 dose TOP BID PRN 04/21/19 [History] Lisinopril 1 tab PO DAILY 04/21/19 [History] Omeprazole 20 mg PO DAILY 04/21/19 [History] Tiotropium [Spiriva HandiHaler] 2 puff INH DAILY 04/21/19 [History] allopurinoL [Zyloprim] 300 mg PO DAILY 04/21/19 [History] atorvaSTATin [Lipitor] 80 mg PO DAILY 04/21/19 [History] Metoprolol Succinate 200 mg PO DAILY 05/27/19 [History] Albuterol Sulfate 0.63 mg IH Q4H PRN 01/09/21 [History] Clopidogrel Bisulfate [Plavix] 75 mg PO DAILY 01/09/21 [History] Melatonin 3 mg PO BEDTIME 01/09/21 [History] Pantoprazole [ProTONIX] 40 mg PO DAILY #30 tab.cr 01/09/21 [Rx] Sucralfate [Carafate] 1 gm PO Q6HR #120 tab 01/09/21 [Rx] metFORMIN HCl [Metformin HCl ER] 500 mg PO DAILY 01/09/21 [History] Past Medical History HEENT History: Reports: Impaired Vision Cardiovascular History: Reports: CAD, High Cholesterol, Hypertension, [place], Stents Respiratory History: Reports: COPD, SOB Musculoskeletal History: Reports: Gout Dermatologic History: Reports: Urticaria - Past Surgical History Head Surgeries/Procedures: Reports: None HEENT Surgical History: Reports: Adenoidectomy, Tonsillectomy Cardiovascular Surgical History: Reports: AAA Repair, Coronary Artery Stent Respiratory Surgical History: Reports: None GI Surgical History: Reports: Cholecystectomy Musculoskeletal Surgical History: Reports: None Dermatological Surgical History: Reports: None Social & Family History - Caffeine Use Caffeine Use: Reports: Coffee ED ROS GENERAL - Review of Systems Review Of Systems: See Below Constitutional: Reports: No Symptoms HEENT: Reports: No Symptoms Respiratory: Reports: Shortness of Breath (Acute on chronic. Patient does have a history of COPD.), Cough Cardiovascular: Reports: Chest Pain (Retrosternal chest pain since 1700 hrs.) Endocrine: Reports: No Symptoms GI/Abdominal: Reports: No Symptoms : Reports: No Symptoms Musculoskeletal: Reports: No Symptoms Skin: Reports: No Symptoms Neurological: Reports: No Symptoms Psychiatric: Reports: Anxiety Hematologic/Lymphatic: Reports: No Symptoms Immunologic: Reports: No Symptoms ED EXAM, GENERAL - Physical Exam Exam: See Below Exam Limited By: No Limitations General Appearance: Alert, Anxious, Moderate Distress Eye Exam: Bilateral Eye: EOMI, PERRL Throat/Mouth: Normal Inspection, Normal Oropharynx, Normal Voice, No Airway Compromise Head: Atraumatic, Normocephalic Neck: Normal Inspection, Supple, Non-Tender, Full Range of Motion. No: Carotid Bruit Respiratory/Chest: No Respiratory Distress, No Accessory Muscle Use, Chest Non- Tender, Wheezing (Inspiratory and expiratory wheezes), Prolonged Expiration Cardiovascular: Normal Peripheral Pulses, Regular Rate, Rhythm, No Murmur, Tachycardia Peripheral Pulses: 2+: Radial (L), Radial (R), Posterior Tibial (L), Posterior Tibial (R) GI/Abdominal: Normal Bowel Sounds, Soft, Non-Tender Extremities: Normal Inspection, Normal Range of Motion, No Pedal Edema Neurological: Alert, Oriented, Normal Cognition, No Motor/Sensory Deficits Psychiatric: Anxious Skin Exam: Warm, Dry, Intact, Normal Color Lymphatic: No Adenopathy #1 Interpretation EKG Date: 01/09/21 Time: 00:36 Rhythm: NSR Rate (Beats/Min): 115 [place]: Normal P-Wave: Present QRS: Normal ST-T: Depressed (ST depression in anterior lateral leads) QT: Normal Comparison: Change From Previous EKG (ST depression in the anterior lateral leads is new when compared to previous EKG on 06/25/2019.) Course - Vital Signs Last Recorded V/S: Last Vital Signs Temp 36.9 C 01/09/21 01:04 Pulse 117 H 01/09/21 01:15 Resp 17 01/09/21 01:15 BP 103/67 01/09/21 01:15 Pulse Ox 95 01/09/21 01:15 - Orders/Labs/Meds Orders: Active Orders 24 hr Category Date Time Status EKG Documentation Completion [RC] ASDIRECTED Care 01/09/21 00:38 Active Chest 1V Frontal [CR] Stat Exams 01/09/21 00:37 Taken Pantoprazole [ProTONIX] Med 01/09/21 02:21 Stat 40 mg PO ONETIME STA Sodium Chloride 0.9% [Saline Flush] Med 01/09/21 00:37 Active 10 ml FLUSH ASDIRECTED PRN Sucralfate [Carafate] Med 01/09/21 02:21 Once 1 gm PO ONETIME ONE Saline Lock Insert [OM.PC] Routine Oth 01/09/21 00:37 Ordered EKG 12 Lead [EK] Routine Ther 01/09/21 00:37 Ordered Medication Orders Pantoprazole Sodium (Pantoprazole 40 Mg Tab.Cr) 40 mg PO ONETIME STA Stop: 01/09/21 02:22 Sodium Chloride (Sodium Chloride 0.9% 10 Ml Syringe) 10 ml FLUSH ASDIRECTED PRN PRN Reason: Keep Vein Open Last Admin: 01/09/21 00:49 Dose: 10 ml Documented by: OLIVIA Sucralfate (Sucralfate 1 Gm Tab) 1 gm PO ONETIME ONE Stop: 01/09/21 02:22 Labs: Laboratory Tests 01/09/21 01/09/21 01/09/21 Range/Units 00:46 00:46 00:46 WBC 6.4 (4.5-11.0) K/uL RBC 4.11 L (4.30-5.90) M/uL Hgb 13.0 (12.0-15.0) g/dL Hct 40.2 (40.0-54.0) % MCV 98 (80-98) fL MCH 32 H (27-31) pg MCHC 32 (32-36) % Plt Count 237 (150-400) K/uL Neut % (Auto) 37.9 (36-66) % Lymph % (Auto) 44.1 H (24-44) % [place] % (Auto) 14.4 H (2-6) % Eos % (Auto) 3.0 (2-4) % Baso % (Auto) 0.6 (0-1) % PT 10.9 (9.5-12.0) sec INR 1.00 (0.80-1.20) APTT 25.0 L (27.0-36.0) sec Sodium 138 L (140-148) mmol/L Potassium 3.8 (3.6-5.2) mmol/L Chloride 100 (100-108) mmol/L Carbon Dioxide 28 (21-32) mmol/L Anion Gap 13.8 (5.0-14.0) mmol/L BUN 10 (7-18) mg/dL Creatinine 1.2 (0.8-1.3) mg/dL Est Cr Clr Drug Dosing 68.43 mL/min Estimated GFR (MDRD) > 60 (>60) Glucose 144 H (74-106) mg/dL Calcium 8.9 (8.5-10.1) mg/dL Total Bilirubin 0.5 D (0.2-1.0) mg/dL AST 19 (15-37) U/L ALT 25 (12-78) U/L Alkaline Phosphatase 91 (46-116) U/L Troponin I < 0.017 (0.000-0.056) ng/mL Total Protein 7.2 (6.4-8.2) g/dL Albumin 3.1 L (3.4-5.0) g/dL Globulin 4.1 H (2.3-3.5) g/dL Albumin/Globulin Ratio 0.8 L (1.2-2.2) Meds: Medications Generic Name Dose Route Start Last Admin Trade Name Freq PRN Reason Stop Dose Admin Pantoprazole Sodium 40 mg 01/09/21 02:21 Pantoprazole 40 Mg Tab.Cr PO 01/09/21 02:22 ONETIME STA Sodium Chloride 10 ml 01/09/21 00:37 01/09/21 00:49 Sodium Chloride 0.9% 10 Ml Syringe FLUSH 10 ml ASDIRECTED PRN Administration Keep Vein Open Sucralfate 1 gm 01/09/21 02:21 Sucralfate 1 Gm Tab PO 01/09/21 02:22 ONETIME ONE Discontinued Medications Generic Name Dose Route Start Last Admin Trade Name Freq PRN Reason Stop Dose Admin Aspirin 324 mg 01/09/21 00:38 01/09/21 00:48 Aspirin 81 Mg Tab.Chew PO 01/09/21 00:39 324 mg ONETIME ONE Administration Al Hydroxide/Mg Hydroxide 15 0 ml 01/09/21 01:19 01/09/21 01:47 ml/ Lidocaine HCl 15 ml PO 01/09/21 01:20 30 ml ONETIME ONE Administration Metoprolol Succinate 25 mg 01/09/21 00:53 Metoprolol Succinate 25 Mg Tab.Er PO 01/09/21 00:54 ONETIME ONE Metoprolol Tartrate 25 mg 01/09/21 00:56 01/09/21 01:01 Metoprolol Tartrate 25 Mg Tab PO 01/09/21 00:57 25 mg ONETIME ONE Administration Nitroglycerin 0.4 mg 01/09/21 00:38 01/09/21 01:03 Nitroglycerin 0.4 Mg Tab.Sl SL 0.4 mg Q5M PRN Administration Chest Pain - Radiology Interpretation Free Text/Narrative:: I reviewed the chest x-ray on the patient showing hyperinflation but no evidence for acute infiltrates or pulmonary edema. There is mild cardiomegaly. - Re-Assessments/Exams Free Text/Narrative Re-Assessment/Exam: 01/09/21 00:54 the patient has had chest pain for the last 7 hours. Upon a rrival to the ED we gave him 4 aspirin to chew and sublingual nitro which brought his pain from a 9 out of 10 down to a 5 out of 10. He still remains quite tachycardic with a heart rate of 125 so he was given metoprolol 25 mg p.o. With the ongoing chest pain he was given a second sublingual nitro. Third nitro was given and again reduced his pain to a 5 but it came back up to a 6 within 30 minutes. This is likely not cardiac in origin but more likely esophageal spasm due to esophagitis. His labs were reviewed and show normal CBC and comprehensive metabolic profile. His troponin is negative. His chest x- ray shows COPD changes but no acute abnormalities. His EKG is only remarkable for sinus tachycardia and nonspecific ST depression in the anterior lateral leads. As his symptoms have been more than 7 hours and his troponin is negative, this is unlikely cardiac in origin. 01/09/21 02:26 the patient was given a GI cocktail with marked improvement in his symptoms. His symptoms are likely related to acute esophagitis due to reflux disease. We will put the patient on pantoprazole and Carafate to help heal the esophagus. At this time he suitable for discharge home in satisfactory condition. Departure - Departure Time of Disposition: 02:23 Disposition: Home, Self-Care 01 Clinical Impression: Gastroesophageal reflux disease with esophagitis Qualifiers: Esophagitis bleeding: without hemorrhage Qualified Code(s): K21.00 - Gastro- esophageal reflux disease with esophagitis, without bleeding Instructions: Gastroesophageal Reflux Disease, Adult, [id number] Referrals: PCP,Unknown [Primary Care Provider] - Forms: ED Department Discharge Care Plan Goals: Your work-up today has shown that you have significant esophagitis likely due to reflux disease. We are going to change your omeprazole to a stronger medication called pantoprazole which you will take 40 mg daily for the next 30 days. In addition, I am putting you on a medication that helps absorb the acid called Carafate which she will take 15 minutes before each meal and 15 minutes before bedtime for the next 30 days. This will allow your esophagus to heal and should significantly reduce the pain that you are experiencing. Your work-up today has not shown any evidence for heart involvement. [facility] for rec[facility]ck in 2 to 4 weeks. Return to the ED should you develop worsening of symptoms. Sepsis Event Note (ED) - Focused Exam Vital Signs: Vital Signs Temp Pulse Pulse Resp BP BP Pulse Ox 01/09/21 01:15 117 H 17 103/67 95 01/09/21 01:10 118 H 15 98/68 93 L 01/09/21 01:05 119 H 19 110/77 95 01/09/21 01:04 36.9 C 120 H 19 117/76 94 L 01/09/21 01:03 117/76 01/09/21 01:02 120 H 19 117/76 94 L 01/09/21 01:01 124 H 114/68 01/09/21 00:55 122 H 18 114/68 92 L 01/09/21 00:54 119/77 01/09/21 00:52 123 H 20 119/77 92 L 01/09/21 00:49 147/78 H 01/09/21 00:45 111 H 19 147/78 H 92 L 01/09/21 00:43 36.9 C 114 H 16 133/88 96 - Problem List & Annotations (1) Gastroesophageal reflux disease with esophagitis SNOMED Code(s): 747002651 Code(s): K21.00 - GASTRO-ESOPHAGEAL REFLUX DIS WITH ESOPHAGITIS, WITHOUT BLEED Status: Acute Priority: High Current Visit: Yes Qualifiers: Esophagitis bleeding: without hemorrhage Qualified Code(s): K21.00 - Gastro-esophageal reflux disease with esophagitis, without bleeding - Problem List Review Problem List Initiated/Reviewed/Updated: Yes - My Orders Last 24 Hours: My Active Orders 01/09/21 00:37 Chest 1V Frontal [CR] Stat Sodium Chloride 0.9% [Saline Flush] 10 ml FLUSH ASDIRECTED PRN Saline Lock Insert [OM.PC] Routine EKG 12 Lead [EK] Routine 01/09/21 00:38 EKG Documentation Completion [RC] ASDIRECTED 01/09/21 02:21 Sucralfate [Carafate] 1 gm PO ONETIME ONE 01/09/21 02:21 Pantoprazole [ProTONIX] 40 mg PO ONETIME STA - Assessment/Plan Last 24 Hours: My Active Orders 01/09/21 00:37 Chest 1V Frontal [CR] Stat Sodium Chloride 0.9% [Saline Flush] 10 ml FLUSH ASDIRECTED PRN Saline Lock Insert [OM.PC] Routine EKG 12 Lead [EK] Routine 01/09/21 00:38 EKG Documentation Completion [RC] ASDIRECTED 01/09/21 02:21 Sucralfate [Carafate] 1 gm PO ONETIME ONE 01/09/21 02:21 Pantoprazole [ProTONIX] 40 mg PO ONETIME STA
[2021-01-09] MEDS: Nitroglycerin 0.4 MG Tab.SL SL PRN ×3 (00:49→01:03)
[2021-01-09] MEDS ORDERED: Metoprolol Succinate 25 MG Tab.ER PO ONE (00:53)
[2021-01-09] MEDS ORDERED: Metoprolol Tartrate 25 MG Tab PO ONE (00:56)
[2021-01-09] MEDS ORDERED: Alum Hydrox/Mag Hydrox/Simeth 15 ML, Lidocaine 2% 15 ML PO ONE ×2 (01:19)
[2021-01-09] MEDS ORDERED: Pantoprazole 40 MG Tab.CR PO STA (02:21)
[2021-01-09] MEDS ORDERED: Sucralfate 1 GM Tab PO ONE (02:21)
--- NOTE | 2021-01-11 09:31 | CR ---
CHEST: Portable 01/09/2021 at 12:57 AM CLINICAL HISTORY:Chest pain COMPARISON:05/27/2019 FINDINGS: Costophrenic angles are clipped. Lungs are hyperaerated. Heart and pulmonary vascularity are normal. There are atherosclerotic changes in the aorta. Impression: Limited study Emphysematous changes No acute cardiopulmonary process.
== END 2021-01-09 02:49 | disposition home or self-care (01) ==
LOC: JP.ED 00:33
DX: K21.00 Gastro-esophageal reflux disease with esophagitis, without bleeding (principal); I25.10 Atherosclerotic heart disease of native coronary artery without angina pectoris; E78.00 Pure hypercholesterolemia, unspecified; I10 Essential (primary) hypertension; I25.2 Old myocardial infarction; J44.9 Chronic obstructive pulmonary disease, unspecified; Z95.5 Presence of coronary angioplasty implant and graft; Z79.899 Other long term (current) drug therapy; Z79.02 Long term (current) use of antithrombotics/antiplatelets
CPT/HCPCS: 36415; 71045; 71045-26; 80053; 84484; 85025; 85610; 85730; 93005; 93010; 99284; 99285-25; A9270-GY

== ENCOUNTER 2021-03-31 10:00 | Emergency (ER) | payer MEDICARE, BC ==
[2021-03-31] MEDS ORDERED: Sodium Chloride 0.9% 10 ML Syringe FLUSH PRN ×3 (11:04→17:37)
--- NOTE | 2021-03-31 11:13 | EDM.PDOC ---
ED HPI GENERAL MEDICAL PROBLEM - General Chief Complaint: Fever Stated Complaint: CONSTANT FEVER COPD Time Seen by Provider: 03/31/21 10:52 Source of Information: Reports: Patient, Family, Old Records, RN Notes Reviewed History Limitations: Reports: No Limitations - History of Present Illness INITIAL COMMENTS - FREE TEXT/NARRATIVE: 65-year-old gentleman presents emergency department day complaint of intermittent fevers mostly at night been going on for several months also chest pain with a deep breath been going on for several months. He has a known history of peripheral vascular disease has had cerebrovascular accident in the past known history of intermittent atrial fibrillation is currently on Eliquis. Recently had ultrasound done of his arterial system lower extremity which demonstrates biphasic waveforms consistent with the stenosis. He has never had a pulmonary embolism that he is aware of. Only has chest pain with deep breath is more short of breath than usual has lost about 5 pounds over the last week. Does admit to several tick bites over the summer Chest Pain Score (Numeric/FACES): 8 - Related Data Allergies Allergy/AdvReac Type Severity Reaction Status Date / Time No Known Allergies Allergy Verified 03/31/21 10:34 Home Meds: Home Meds Albuterol Sulfate [Albuterol Sulfate Hfa] 2 puff INH Q6H PRN 04/21/19 [History] Budesonide/Formoterol [Symbicort 160-4.5 MCG] 2 puff INH BID 04/21/19 [History] Cholecalciferol (Vitamin D3) [D3-2000] 4,000 units PO BID 04/21/19 [History] Clotrimazole [Clotrimazole 1%] 1 dose TOP BID PRN 04/21/19 [History] Lisinopril 1 tab PO DAILY 04/21/19 [History] Omeprazole 20 mg PO DAILY 04/21/19 [History] Tiotropium [Spiriva HandiHaler] 2 puff INH DAILY 04/21/19 [History] allopurinoL [Zyloprim] 300 mg PO DAILY 04/21/19 [History] atorvaSTATin [Lipitor] 80 mg PO DAILY 04/21/19 [History] Metoprolol Succinate 100 mg PO DAILY 05/27/19 [History] Albuterol Sulfate 0.63 mg IH Q4H PRN 01/09/21 [History] Clopidogrel Bisulfate [Plavix] 75 mg PO DAILY 01/09/21 [History] Melatonin 3 mg PO BEDTIME 01/09/21 [History] metFORMIN HCl [Metformin HCl ER] 500 mg PO DAILY 01/09/21 [History] Apixaban [Eliquis] 5 mg PO BID 03/31/21 [History] Riboflavin (Vitamin B2) [Vitamin B-2] 200 mg PO DAILY 03/31/21 [History] amLODIPine Besylate [Amlodipine Besylate] 10 mg PO DAILY 03/31/21 [History] Past Medical History HEENT History: Reports: Impaired Vision Cardiovascular History: Reports: CAD, High Cholesterol, Hypertension, [place], PVD, Stents Respiratory History: Reports: COPD, SOB Musculoskeletal History: Reports: Gout Neurological History: Reports: CVA Endocrine/Metabolic History: Reports: Diabetes, Type II Dermatologic History: Reports: Urticaria - Infectious Disease History Infectious Disease History: Reports: Chicken Pox, Measles, 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 Respiratory Surgical History: Reports: None GI Surgical History: Reports: Cholecystectomy Musculoskeletal Surgical History: Reports: None Dermatological Surgical History: Reports: None Social & Family History - Tobacco Use Tobacco Use Status *Q: Current Every Day Tobacco User Years of Tobacco use: 50 Packs/Tins Daily: 1 - Caffeine Use Caffeine Use: Reports: Coffee, Soda - Recreational Drug Use Recreational Drug Use: No ED ROS GENERAL - Review of Systems Review Of Systems: See Below Constitutional: Reports: Fever. Denies: Weakness, Fatigue HEENT: Reports: No Symptoms Respiratory: Reports: Shortness of Breath Cardiovascular: Reports: Chest Pain (With a deep breath), Dyspnea on Exertion GI/Abdominal: Reports: No Symptoms ED EXAM, GENERAL - Physical Exam Exam: See Below Exam Limited By: No Limitations General Appearance: Alert, WD/WN, No Apparent Distress Respiratory/Chest: No Respiratory Distress, Lungs Clear, No Accessory Muscle Use, Chest Non-Tender, Decreased Breath Sounds Cardiovascular: Regular Rate, Rhythm, No Murmur GI/Abdominal: Soft, Non-Tender Back Exam: Normal Inspection, Full Range of Motion Extremities: Pedal Edema Neurological: Alert, Oriented, No Motor/Sensory Deficits #1 Interpretation EKG Date: 03/31/21 Time: 12:15 Rhythm: NSR [place]: Normal P-Wave: Present QRS: Normal ST-T: Normal QT: Normal Comparison: Change From Previous EKG Course - Vital Signs Last Recorded V/S: Last Vital Signs Temp 98.1 F 03/31/21 10:30 Pulse 89 03/31/21 19:38 Resp 19 03/31/21 19:38 BP 100/56 L 03/31/21 19:38 Pulse Ox 91 L 03/31/21 19:38 - Orders/Labs/Meds Orders: Active Orders 24 hr Category Date Time Status Cardiac Monitoring [RC] .As Directed Care 03/31/21 11:04 Active Peripheral IV Care [RC] . DIRECTED Care 03/31/21 11:05 Active Iopamidol [Isovue-300 (61%)] Med 03/31/21 17:45 Active 147 ml IV . DIRECTED Iopamidol [Isovue-370 (76%)] Med 03/31/21 12:45 Active 100 ml IV . DIRECTED Sodium Chloride 0.9% [Normal Saline] 1,000 ml Med 03/31/21 11:15 Active IV ASDIRECTED Sodium Chloride 0.9% [Normal Saline] 100 ml Med 03/31/21 12:45 Active IV ASDIRECTED Sodium Chloride 0.9% [Saline Flush] Med 03/31/21 11:04 Active 10 ml FLUSH ASDIRECTED PRN Sodium Chloride 0.9% [Saline Flush] Med 03/31/21 12:34 Active 10 ml FLUSH ONETIME PRN Sodium Chloride 0.9% [Saline Flush] Med 03/31/21 17:37 Active 10 ml FLUSH ONETIME PRN Peripheral IV Insertion Adult [OM.PC] Stat Oth 03/31/21 11:04 Ordered EKG 12 Lead [EK] Stat Ther 03/31/21 11:05 Ordered Medication Orders Sodium Chloride (Normal Saline) 1,000 mls @ 500 mls/hr IV ASDIRECTED MARIE Last Admin: 03/31/21 11:42 Dose: 500 mls/hr Documented by: PREILOR Sodium Chloride (Normal Saline) 100 mls @ 3.5 mls/sec IV ASDIRECTED MARIE Last Admin: 03/31/21 12:36 Dose: 4 mls/sec Documented by: FAMILIA Iopamidol (Iopamidol 755 Mg/Ml 100 Ml Bottle) 100 ml IV . DIRECTED MARIE Last Admin: 03/31/21 12:36 Dose: 100 ml Documented by: FAMILIA Iopamidol (Iopamidol 612 Mg/Ml 150 Ml Bottle) 147 ml IV . DIRECTED MARIE Last Admin: 03/31/21 17:50 Dose: 147 ml Documented by: CASIMIRO Sodium Chloride (Sodium Chloride 0.9% 10 Ml Syringe) 10 ml FLUSH ASDIRECTED PRN PRN Reason: Keep Vein Open Last Admin: 03/31/21 11:42 Dose: 10 ml Documented by: PREILOR Sodium Chloride (Sodium Chloride 0.9% 10 Ml Syringe) 10 ml FLUSH ONETIME PRN PRN Reason: per radiology protocol Last Admin: 03/31/21 12:36 Dose: 10 ml Documented by: FAMILIA Sodium Chloride (Sodium Chloride 0.9% 10 Ml Syringe) 10 ml FLUSH ONETIME PRN PRN Reason: PER RADIOLOGY PROTOCOL Last Admin: 03/31/21 17:50 Dose: 10 ml Documented by: CASIMIRO Labs: Laboratory Tests 03/31/21 03/31/21 03/31/21 Range/Units 10:44 11:04 11:16 WBC 7.8 (4.5-11.0) K/uL RBC 2.75 L (4.30-5.90) M/uL Hgb 9.3 L D (12.0-15.0) g/dL Hct 28.0 L (40.0-54.0) % MCV 102 H (80-98) fL MCH 34 H (27-31) pg MCHC 33 (32-36) % Plt Count 198 (150-400) K/uL Neut % (Auto) 32.0 L (36-66) % Lymph % (Auto) 35.1 (24-44) % [place] % (Auto) 30.9 H (2-6) % Eos % (Auto) 0.6 L (2-4) % Baso % (Auto) 1.4 H (0-1) % ESR (0-20) mm/hr Sodium 131 L (140-148) mmol/L Potassium 3.5 L (3.6-5.2) mmol/L Chloride 98 L (100-108) mmol/L Carbon Dioxide 25 (21-32) mmol/L Anion Gap 11.5 (5.0-14.0) mmol/L BUN 13 (7-18) mg/dL Creatinine 1.0 (0.8-1.3) mg/dL Est Cr Clr Drug Dosing 82.12 mL/min Estimated GFR (MDRD) > 60 (>60) Glucose 193 H (74-106) mg/dL Lactic Acid (0.4-2.0) mmol/L Calcium 8.5 (8.5-10.1) mg/dL Total Bilirubin 0.3 (0.2-1.0) mg/dL AST 23 (15-37) U/L ALT 33 (12-78) U/L Alkaline Phosphatase 54 (46-116) U/L Troponin I 0.080 H* (0.000-0.056) ng/mL C-Reactive Protein (0.0-0.3) mg/dL Total Protein 6.3 L (6.4-8.2) g/dL Albumin 1.9 L (3.4-5.0) g/dL Globulin 4.4 H (2.3-3.5) g/dL Albumin/Globulin Ratio 0.4 L (1.2-2.2) Lyme Disease IgG Ab (Negative) Lyme Disease IgM Ab (Negative) SARS CoV-2 RNA Rapid DERICK Negative 03/31/21 03/31/21 03/31/21 Range/Units 11:16 15:08 15:08 WBC (4.5-11.0) K/uL RBC (4.30-5.90) M/uL Hgb (12.0-15.0) g/dL Hct (40.0-54.0) % MCV (80-98) fL MCH (27-31) pg MCHC (32-36) % Plt Count (150-400) K/uL Neut % (Auto) (36-66) % Lymph % (Auto) (24-44) % [place] % (Auto) (2-6) % Eos % (Auto) (2-4) % Baso % (Auto) (0-1) % ESR > 120 H (0-20) mm/hr Sodium (140-148) mmol/L Potassium (3.6-5.2) mmol/L Chloride (100-108) mmol/L Carbon Dioxide (21-32) mmol/L Anion Gap (5.0-14.0) mmol/L BUN (7-18) mg/dL Creatinine (0.8-1.3) mg/dL Est Cr Clr Drug Dosing mL/min Estimated GFR (MDRD) (>60) Glucose (74-106) mg/dL Lactic Acid 1.6 (0.4-2.0) mmol/L Calcium (8.5-10.1) mg/dL Total Bilirubin (0.2-1.0) mg/dL AST (15-37) U/L ALT (12-78) U/L Alkaline Phosphatase (46-116) U/L Troponin I (0.000-0.056) ng/mL C-Reactive Protein 11.57 H (0.0-0.3) mg/dL Total Protein (6.4-8.2) g/dL Albumin (3.4-5.0) g/dL Globulin (2.3-3.5) g/dL Albumin/Globulin Ratio (1.2-2.2) Lyme Disease IgG Ab (Negative) Lyme Disease IgM Ab (Negative) SARS CoV-2 RNA Rapid DERICK 03/31/21 03/31/21 Range/Units 15:08 15:36 WBC (4.5-11.0) K/uL RBC (4.30-5.90) M/uL Hgb (12.0-15.0) g/dL Hct (40.0-54.0) % MCV (80-98) fL MCH (27-31) pg MCHC (32-36) % Plt Count (150-400) K/uL Neut % (Auto) (36-66) % Lymph % (Auto) (24-44) % [place] % (Auto) (2-6) % Eos % (Auto) (2-4) % Baso % (Auto) (0-1) % ESR (0-20) mm/hr Sodium (140-148) mmol/L Potassium (3.6-5.2) mmol/L Chloride (100-108) mmol/L Carbon Dioxide (21-32) mmol/L Anion Gap (5.0-14.0) mmol/L BUN (7-18) mg/dL Creatinine (0.8-1.3) mg/dL Est Cr Clr Drug Dosing mL/min Estimated GFR (MDRD) (>60) Glucose (74-106) mg/dL Lactic Acid (0.4-2.0) mmol/L Calcium (8.5-10.1) mg/dL Total Bilirubin (0.2-1.0) mg/dL AST (15-37) U/L ALT (12-78) U/L Alkaline Phosphatase (46-116) U/L Troponin I 0.041 (0.000-0.056) ng/mL C-Reactive Protein (0.0-0.3) mg/dL Total Protein (6.4-8.2) g/dL Albumin (3.4-5.0) g/dL Globulin (2.3-3.5) g/dL Albumin/Globulin Ratio (1.2-2.2) Lyme Disease IgG Ab Negative (Negative) Lyme Disease IgM Ab Negative (Negative) SARS CoV-2 RNA Rapid DERICK Meds: Medications Generic Name Dose Route Start Last Admin Trade Name Freq PRN Reason Stop Dose Admin Sodium Chloride 1,000 mls @ 500 mls/hr 03/31/21 11:15 03/31/21 11:42 Normal Saline IV 500 mls/hr ASDIRECTED MARIE Administration Sodium Chloride 100 mls @ 3.5 mls/sec 03/31/21 12:45 03/31/21 12:36 Normal Saline IV 4 mls/sec ASDIRECTED MARIE Administration Iopamidol 100 ml 03/31/21 12:45 03/31/21 12:36 Iopamidol 755 Mg/Ml 100 Ml Bottle IV 100 ml . DIRECTED MARIE Administration Iopamidol 147 ml 03/31/21 17:45 03/31/21 17:50 Iopamidol 612 Mg/Ml 150 Ml Bottle IV 147 ml . DIRECTED MARIE Administration Sodium Chloride 10 ml 03/31/21 11:04 03/31/21 11:42 Sodium Chloride 0.9% 10 Ml Syringe FLUSH 10 ml ASDIRECTED PRN Administration Keep Vein Open Sodium Chloride 10 ml 03/31/21 12:34 03/31/21 12:36 Sodium Chloride 0.9% 10 Ml Syringe FLUSH 10 ml ONETIME PRN Administration per radiology protocol Sodium Chloride 10 ml 03/31/21 17:37 03/31/21 17:50 Sodium Chloride 0.9% 10 Ml Syringe FLUSH 10 ml ONETIME PRN Administration PER RADIOLOGY PROTOCOL Discontinued Medications Generic Name Dose Route Start Last Admin Trade Name Coleman PRN Reason Stop Dose Admin Sodium Chloride 85 mls @ 3 mls/sec 03/31/21 17:37 03/31/21 17:51 Normal Saline IV 03/31/21 17:38 3 mls/sec ONETIME ONE Administration Departure - Departure Time of Disposition: 19:41 Disposition: Home, Self-Care 01 Condition: Fair Clinical Impression: Relapsing fever Instructions: Fever, Adult, [id number] Referrals: Jerome Myrick MD [Primary Care Provider] - Forms: ED Department Discharge, ED Department Discharge Additional Instructions: Please follow-up with your primary care next 3 to 5 days for further evaluation Sepsis Event Note (ED) - Focused Exam Vital Signs: Vital Signs Temp Pulse Resp BP Pulse Ox 03/31/21 19:38 89 19 100/56 L 91 L 03/31/21 18:03 85 14 110/67 100 03/31/21 16:42 79 20 93/57 L 97 03/31/21 15:40 77 15 91/63 98 03/31/21 13:40 81 19 94/59 L 97 03/31/21 12:40 79 18 94/59 L 96 03/31/21 12:06 81 18 91/57 L 98 03/31/21 11:31 84 19 73/44 L 97 03/31/21 10:30 98.1 F 88 16 83/49 L 96 - My Orders Last 24 Hours: My Active Orders 03/31/21 11:04 Cardiac Monitoring [RC] .As Directed Sodium Chloride 0.9% [Saline Flush] 10 ml FLUSH ASDIRECTED PRN Peripheral IV Insertion Adult [OM.PC] Stat 03/31/21 11:05 Peripheral IV Care [RC] . DIRECTED EKG 12 Lead [EK] Stat 03/31/21 11:15 Sodium Chloride 0.9% [Normal Saline] 1,000 ml IV ASDIRECTED 03/31/21 12:34 Sodium Chloride 0.9% [Saline Flush] 10 ml FLUSH ONETIME PRN 03/31/21 12:45 Iopamidol [Isovue-370 (76%)] 100 ml IV . DIRECTED Sodium Chloride 0.9% [Normal Saline] 100 ml IV ASDIRECTED 03/31/21 17:37 Sodium Chloride 0.9% [Saline Flush] 10 ml FLUSH ONETIME PRN 03/31/21 17:45 Iopamidol [Isovue-300 (61%)] 147 ml IV . DIRECTED - Assessment/Plan Last 24 Hours: My Active Orders 03/31/21 11:04 Cardiac Monitoring [RC] .As Directed Sodium Chloride 0.9% [Saline Flush] 10 ml FLUSH ASDIRECTED PRN Peripheral IV Insertion Adult [OM.PC] Stat 03/31/21 11:05 Peripheral IV Care [RC] . DIRECTED EKG 12 Lead [EK] Stat 03/31/21 11:15 Sodium Chloride 0.9% [Normal Saline] 1,000 ml IV ASDIRECTED 03/31/21 12:34 Sodium Chloride 0.9% [Saline Flush] 10 ml FLUSH ONETIME PRN 03/31/21 12:45 Iopamidol [Isovue-370 (76%)] 100 ml IV . DIRECTED Sodium Chloride 0.9% [Normal Saline] 100 ml IV ASDIRECTED 03/31/21 17:37 Sodium Chloride 0.9% [Saline Flush] 10 ml FLUSH ONETIME PRN 03/31/21 17:45 Iopamidol [Isovue-300 (61%)] 147 ml IV . DIRECTED Plan: Assessment Acuity = acute Site and laterality = relapsing fevers Etiology = unknown Manifestations = weight loss Location of injury = Home Lab values = hemoglobin low at 9.3 consistent with macro chromic anemia sed rate markedly elevated at 120 troponin is initially really elevated 0.08 and then recheck down to 0.41 Lyme disease was negative Covid was negative CT scan chest abdomen pelvis show no acute process Plan Peripheral smear is pending I did review lab work with him he is can follow-up with his primary care for further work-up and evaluation This note was dictated using [employer] voice recognition software please call with any questions on syntax or grammar.
[2021-03-31] MEDS ORDERED: Sodium Chloride 0.9% 1,000 ML IV SCH (11:15)
[2021-03-31] MEDS ORDERED: Sodium Chloride 0.9% 100 ML IV SCH (12:45)
[2021-03-31] MEDS ORDERED: Iopamidol 755 Mg/ML 100 ML Bottle IV SCH (12:45)
--- NOTE | 2021-03-31 13:23 | CRLCT ---
For Patients: As a result of the 21st Century Cures Act, medical imaging exams and procedure reports are released immediately into your electronic medical record. You may view this report before your referring provider. If you have questions, please contact your health care provider. INDICATION: Fever, pain with a deep breath. COMPARISON: Chest radiograph 04/16/2019. TECHNIQUE: CT of the chest with 100 cc of Isovue 370 IV contrast. Coronal and sagittal reconstructions. 3D post processing was performed. FINDINGS: Normal heart size. Normal caliber thoracic aorta and central pulmonary arteries. Dense coronary artery calcifications. Calcified and noncalcified atheromatous plaque throughout the thoracic aorta. Negative for acute pulmonary embolism. No pericardial effusion. No thoracic lymphadenopathy. Wireless electronic device in the left anterior chest wall. The imaged thyroid gland is normal in appearance. No focal consolidation, pleural effusion, or pneumothorax. Moderate upper lung predominant emphysema. 6 mm noncalcified pulmonary nodule in the lateral left lower lobe (series 6, image 106). No central endobronchial lesion. Small hiatal hernia. Partially visualized upper abdominal aortic stent graft. Cholecystectomy. Right renal cysts. Subcentimeter hyperdense nodule arising from the upper pole of the right kidney (series 4, image 146). Mild left hydronephrosis of uncertain etiology. Degenerative changes of the spine. IMPRESSION: 1. Negative for acute pulmonary embolism. No other acute findings in the chest. 2. Moderate emphysema. 3. 6 mm noncalcified pulmonary nodule in the left lower lobe. Please see follow-up guidelines below. 4. Mild left hydronephrosis of uncertain etiology. A distal obstructing stone cannot be excluded. This could be further evaluated with CT of the abdomen and pelvis. 5. Indeterminate subcentimeter hyperdense lesion in the upper pole of the right kidney. This could be further evaluated with renal ultrasound. [employer] GUIDELINES - SOLID NODULES: : SINGLE LOW RISK - nodule less than 6 mm: No routine follow-up. - nodule 6-8 mm: CT at 6-12 months, then consider CT at 18-24 months. - nodule greater than 8 mm: Consider CT at 3 months, PET/CT or tissue sampling. SINGLE HIGH RISK - nodule less than 6 mm: Optional CT at 12 months. - nodule 6-8 mm: CT at 6-12 months, then CT at 18-24 months. - nodule greater than 8 mm: Consider CT at 3 months, PET/CT or tissue sampling. Please note that all CT scans at this facility use dose modulation, iterative reconstruction, and/or weight-based dosing when appropriate to reduce radiation dose to as low as reasonably achievable. Dictated by Jacinta Felder MD @ 03/31/2021 1:22:21 PM (Electronically Signed)
[2021-03-31] MEDS ORDERED: Iopamidol 612 MG/ML 150 ML Bottle IV SCH (17:45)
--- NOTE | 2021-03-31 19:26 | CRLCT ---
For Patients: As a result of the 21st Century Cures Act, medical imaging exams and procedure reports are released immediately into your electronic medical record. You may view this report before your referring provider. If you have questions, please contact your health care provider. INDICATION: Weight loss, sedimentation rate 120 TECHNIQUE: CT abdomen and pelvis acquired with IV contrast. COMPARISON: CT angio chest same date FINDINGS: Insemination changes at the bilateral lung bases. Liver measures 15 centimeters, normal size cholecystectomy clips are visualized. Fatty atrophy of the pancreas. Spleen is not enlarged. Adrenals are unremarkable. There are bilateral renal cysts. There is redemonstration of the 9 millimeter hyperdense nodule of the right upper pole of the right kidney. Redemonstrated mild hydronephrosis of the left kidney. Delayed timing of contrast, contrast is early within the urinary collecting system at the acquisition of this scan limited evaluation for stones, liver, contrast appears to pass to the level of the bladder, cannot entirely exclude a stone within the distal ureter just proximal to the UVJ. The ureter does appear to narrow at the level of the fat stranding adjacent to the left iliac portion of the stent graft. prostatic median lobe hypertrophy. Suprarenal abdominal aortic bi-iliac stent graft is present with adjacent mild fat stranding, particularly at the iliac bifurcation of uncertain chronicity. Severe atherosclerotic calcifications. Small hiatal hernia. No significant adenopathy. Bowel is unremarkable. Appendix is normal. Small to moderate-sized bilateral fat filled inguinal hernias. Bones are unremarkable. IMPRESSION: 1. Suprarenal abdominal aortic bi-iliac stent graft is present with adjacent mild fat stranding. Fat stranding is more pronounced at the level of the iliac bifurcation. Fat stranding is of uncertain chronicity as no comparison exams are available. 2. Redemonstration of mild to moderate left hydroureteronephrosis. Contrast is already within the ureters and the acquisition of this exam and thus stone cannot be entirely excluded, particularly at the distal ureter. There may be a partial obstruction at the level of the left iliac graft were there is fat stranding adjacent to the graft and extending to the ureteral wall. 3. Redemonstration of the 9 millimeter hyperdense nodule of the right upper pole of the right kidney which can be further evaluated with ultrasound on a nonemergent basis. Please note that all CT scans at this facility use dose modulation, iterative reconstruction, and/or weight-based dosing when appropriate to reduce radiation dose to as low as reasonably achievable. Dictated by Mary Miller MD @ 03/31/2021 7:23:50 PM (Electronically Signed)
[2021-04-02 17:13] LABS: BASO (ABSOLUTE) 0.1 x10E3/uL (0.0-0.2); BASOS 1 % (Not Estab.); EOS 0 % (Not Estab.); HEMATOLOGY COMMENTS: Note: (.); HEMOGLOBIN 9.1 g/dL (13.0-17.7); IMMATURE GRANS (ABS) 0.2 x10E3/uL (0.0-0.1); IMMATURE GRANULOCYTES 3 % (Not Estab.); LYMPHS 36 % (Not Estab.); LYMPHS (ABSOLUTE) 2.5 x10E3/uL (0.7-3.1); MCH 33.8 pg (26.6-33.0); MCHC 33.7 g/dL (31.5-35.7); MCV 100 fL (79-97); MONOCYTES 25 % (Not Estab.); MONOCYTES(ABSOLUTE) 1.8 x10E3/uL (0.1-0.9); NEUTROPHILS 35 % (Not Estab.); NEUTROPHILS (ABSOLUTE) 2.5 x10E3/uL (1.4-7.0); PLATELETS 191 x10E3/uL (150-450); PLTS Appear normal. (.); RBC 2.69 x10E6/uL (4.14-5.80); RDW 14.1 % (11.6-15.4); WBC 7.2 x10E3/uL (3.4-10.8)
== END 2021-03-31 19:54 | disposition home or self-care (01) ==
LOC: JP.ED 10:00
DX: A68.9 Relapsing fever, unspecified (principal); I25.10 Atherosclerotic heart disease of native coronary artery without angina pectoris; E78.00 Pure hypercholesterolemia, unspecified; I10 Essential (primary) hypertension; J44.9 Chronic obstructive pulmonary disease, unspecified; I25.2 Old myocardial infarction; M10.9 Gout, unspecified; E11.9 Type 2 diabetes mellitus without complications; Z95.5 Presence of coronary angioplasty implant and graft; Z86.73 Personal history of transient ischemic attack (TIA), and cerebral infarction without residual deficits; Z79.01 Long term (current) use of anticoagulants; Z79.899 Other long term (current) drug therapy; Z72.0 Tobacco use; Z20.822 Contact with and (suspected) exposure to COVID-19
CPT/HCPCS: 36415; 71275; 74177; 80053; 83605; 84484; 85025; 85060; 85651; 86140; 86618; 93005; 99285; J7030; Q9967; U0002

== ENCOUNTER 2021-04-08 07:58 | Emergency (ER) | payer MEDICARE, BC ==
--- NOTE | 2021-04-08 08:26 | EDM.PDOC ---
ED HPI GENERAL MEDICAL PROBLEM - General Chief Complaint: Flank Pain Stated Complaint: STOMACH PAIN Time Seen by Provider: 04/08/21 08:25 Source of Information: Reports: Patient History Limitations: Reports: No Limitations - History of Present Illness INITIAL COMMENTS - FREE TEXT/NARRATIVE: Is a 65-year-old male presenting to the ED for evaluation of acute onset of left flank pain that started at 0400 hrs. this morning. This woke the patient from sleep. The patient has had some nausea and reports that the pain is from the left flank radiating around to the left lower quadrant. 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 Patient reports that he had dengue fever a number of years ago when he was in the in [facility]. Since then he has been having relapsing fevers but has been told by providers that it is not due to his dengue infection. The patient was seen on 03/31/2021 by one of my colleagues, Officer who discovered that he had left nephrolithiasis. With the onset of his symptoms this morning it certainly possible that he now has ureterolithiasis on the left side causing left flank pain. Left Flank Pain Score (Numeric/FACES): 10 - Related Data Allergies Allergy/AdvReac Type Severity Reaction Status Date / Time No Known Allergies Allergy Verified 04/08/21 08:21 Home Meds: Home Meds Albuterol Sulfate [Albuterol Sulfate Hfa] 2 puff INH Q6H PRN 04/21/19 [History] Budesonide/Formoterol [Symbicort 160-4.5 MCG] 2 puff INH BID 04/21/19 [History] Cholecalciferol (Vitamin D3) [D3-2000] 4,000 units PO BID 04/21/19 [History] Clotrimazole [Clotrimazole 1%] 1 dose TOP BID PRN 04/21/19 [History] Lisinopril 1 tab PO DAILY 04/21/19 [History] Omeprazole 20 mg PO DAILY 04/21/19 [History] Tiotropium [Spiriva HandiHaler] 2 puff INH DAILY 04/21/19 [History] allopurinoL [Zyloprim] 300 mg PO DAILY 04/21/19 [History] atorvaSTATin [Lipitor] 80 mg PO DAILY 04/21/19 [History] Metoprolol Succinate 100 mg PO DAILY 05/27/19 [History] Albuterol Sulfate 0.63 mg IH Q4H PRN 01/09/21 [History] Clopidogrel Bisulfate [Plavix] 75 mg PO DAILY 01/09/21 [History] Melatonin 3 mg PO BEDTIME 01/09/21 [History] metFORMIN HCl [Metformin HCl ER] 500 mg PO DAILY 01/09/21 [History] Apixaban [Eliquis] 5 mg PO BID 03/31/21 [History] Riboflavin (Vitamin B2) [Vitamin B-2] 200 mg PO DAILY 03/31/21 [History] amLODIPine Besylate [Amlodipine Besylate] 10 mg PO DAILY 03/31/21 [History] Acetaminophen/HYDROcodone [HYDROcodone-Acetaminophen 5-325 MG *] 1 tab PO Q4H PRN #10 each 04/08/21 [Rx] Tamsulosin [Tamsulosin 24 Hr] 0.4 mg PO DAILY #14 cap.er 04/08/21 [Rx] Past Medical History HEENT History: Reports: Impaired Vision Cardiovascular History: Reports: CAD, High Cholesterol, Hypertension, [place], PVD, Stents Respiratory History: Reports: COPD, SOB Musculoskeletal History: Reports: Gout Neurological History: Reports: CVA Endocrine/Metabolic History: Reports: Diabetes, Type II Dermatologic History: Reports: Urticaria - Infectious Disease History Infectious Disease History: Reports: Chicken Pox, Measles, 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 Respiratory Surgical History: Reports: None GI Surgical History: Reports: Cholecystectomy Musculoskeletal Surgical History: Reports: None Dermatological Surgical History: Reports: None Social & Family History - Caffeine Use Caffeine Use: Reports: Coffee, Soda ED ROS GENERAL - Review of Systems Review Of Systems: See Below Constitutional: Reports: Fever, Chills (Chronic ongoing issues to recurring relapsing fevers) HEENT: Reports: No Symptoms Respiratory: Reports: No Symptoms Cardiovascular: Reports: No Symptoms Endocrine: Reports: No Symptoms GI/Abdominal: Reports: Abdominal Pain (Left upper quadrant) : Reports: Flank Pain Musculoskeletal: Reports: No Symptoms Skin: Reports: No Symptoms Neurological: Reports: No Symptoms Psychiatric: Reports: No Symptoms Hematologic/Lymphatic: Reports: No Symptoms Immunologic: Reports: No Symptoms ED EXAM, GI/ABD - Physical Exam Exam: See Below Exam Limited By: No Limitations General Appearance: Alert, Anxious, Moderate Distress Eyes: Bilateral: EOMI Throat/Mouth: Normal Inspection, Normal Oropharynx, Normal Voice, No Airway Compromise Head: Atraumatic Neck: Normal Inspection, Supple, Non-Tender Respiratory/Chest: No Respiratory Distress, Lungs Clear, Normal Breath Sounds Cardiovascular: Normal Peripheral Pulses, Regular Rate, Rhythm, No Murmur GI/Abdominal Exam: Normal Bowel Sounds, Soft, Guarding, Tender (Left upper quadrant). No: Rigid, Rebound Back Exam: Normal Inspection, Full Range of Motion, CVA Tenderness (L) Extremities: Normal Inspection, Normal Range of Motion Neurological: Alert, Oriented, Normal Cognition, No Motor/Sensory Deficits Psychiatric: Normal Affect, Anxious Skin Exam: Warm, Dry, Intact, Normal Color Course - Vital Signs Last Recorded V/S: Last Vital Signs Temp 36.6 C 04/08/21 08:30 Pulse 87 04/08/21 08:30 Resp 20 04/08/21 08:30 BP 125/68 04/08/21 08:30 Pulse Ox 96 04/08/21 08:30 - Orders/Labs/Meds Orders: Active Orders 24 hr Category Date Time Status BABESIA MICROTI ANTIBODY PANEL Urgent Lab 04/08/21 08:47 Received HUMAN GRANULOCYTIC BRIAN-HGE Urgent Lab 04/08/21 08:47 Received Sodium Chloride 0.9% [Normal Saline] 1,000 ml Med 04/08/21 08:45 Active IV ASDIRECTED Sodium Chloride 0.9% [Normal Saline] 1,000 ml Med 04/08/21 10:30 Active IV ASDIRECTED Sodium Chloride 0.9% [Saline Flush] Med 04/08/21 08:44 Active 10 ml FLUSH ASDIRECTED PRN Saline Lock Insert [OM.PC] Routine Oth 04/08/21 08:44 Ordered Medication Orders Sodium Chloride (Normal Saline) 1,000 mls @ 999 mls/hr IV ASDIRECTED MARIE Last Admin: 04/08/21 08:46 Dose: 999 mls/hr Documented by: ENRRIQUE Sodium Chloride (Normal Saline) 1,000 mls @ 999 mls/hr IV ASDIRECTED MARIE Last Admin: 04/08/21 10:27 Dose: 999 mls/hr Documented by: ENRRIQUE Sodium Chloride (Sodium Chloride 0.9% 10 Ml Syringe) 10 ml FLUSH ASDIRECTED PRN PRN Reason: Keep Vein Open Last Admin: 04/08/21 08:46 Dose: 10 ml Documented by: ENRRIQUE Labs: Laboratory Tests 04/08/21 04/08/21 04/08/21 Range/Units 08:47 08:47 08:47 WBC 7.7 (4.5-11.0) K/uL RBC 2.84 L (4.30-5.90) M/uL Hgb 9.6 L (12.0-15.0) g/dL Hct 29.6 L (40.0-54.0) % MCV 104 H (80-98) fL MCH 34 H (27-31) pg MCHC 32 (32-36) % Plt Count 208 (150-400) K/uL Neut % (Auto) 41.3 (36-66) % Lymph % (Auto) 32.8 (24-44) % [place] % (Auto) 23.8 H (2-6) % Eos % (Auto) 0.9 L (2-4) % Baso % (Auto) 1.2 H (0-1) % Sodium 135 L (140-148) mmol/L Potassium 4.4 (3.6-5.2) mmol/L Chloride 100 (100-108) mmol/L Carbon Dioxide 27 (21-32) mmol/L Anion Gap 12.4 (5.0-14.0) mmol/L BUN 13 (7-18) mg/dL Creatinine 1.1 (0.8-1.3) mg/dL Est Cr Clr Drug Dosing 74.65 mL/min Estimated GFR (MDRD) > 60 (>60) Glucose 138 H (74-106) mg/dL Calcium 8.9 (8.5-10.1) mg/dL Total Bilirubin 0.5 D (0.2-1.0) mg/dL AST 18 (15-37) U/L ALT 39 (12-78) U/L Alkaline Phosphatase 75 (46-116) U/L C-Reactive Protein 8.59 H (0.0-0.3) mg/dL Total Protein 7.3 (6.4-8.2) g/dL Albumin 2.2 L (3.4-5.0) g/dL Globulin 5.1 H (2.3-3.5) g/dL Albumin/Globulin Ratio 0.4 L (1.2-2.2) Lyme Disease IgG Ab Negative (Negative) Lyme Disease IgM Ab Negative (Negative) Meds: Medications Generic Name Dose Route Start Last Admin Trade Name Freq PRN Reason Stop Dose Admin Sodium Chloride 1,000 mls @ 999 mls/hr 04/08/21 08:45 04/08/21 08:46 Normal Saline IV 999 mls/hr ASDIRECTED MARIE Administration Sodium Chloride 1,000 mls @ 999 mls/hr 04/08/21 10:30 04/08/21 10:27 Normal Saline IV 999 mls/hr ASDIRECTED MARIE Administration Sodium Chloride 10 ml 04/08/21 08:44 04/08/21 08:46 Sodium Chloride 0.9% 10 Ml Syringe FLUSH 10 ml ASDIRECTED PRN Administration Keep Vein Open Discontinued Medications Generic Name Dose Route Start Last Admin Trade Name Calbeq PRN Reason Stop Dose Admin Hydromorphone HCl 1 mg 04/08/21 09:31 04/08/21 09:37 Hydromorphone 1 Mg/Ml Syringe IVPUSH 04/08/21 09:32 1 mg ONETIME ONE Administration Ondansetron HCl 4 mg 04/08/21 09:31 04/08/21 09:36 Ondansetron 4 Mg/2 Ml Sdv IVPUSH 04/08/21 09:32 4 mg ONETIME ONE Administration Tamsulosin HCl 0.4 mg 04/08/21 10:00 04/08/21 10:08 Tamsulosin 0.4 Mg Cap.Er PO 04/08/21 10:01 0.4 mg ONETIME ONE Administration - Radiology Interpretation Free Text/Narrative:: I reviewed the CT of the abdomen and pelvis without contrast showing mild hydronephrosis on the left with mild hydroureter. There is a 7 x 5 mm stone and an 8 mm stone both in the distal left ureter at the crossing of the iliac artery. This is causing partial obstruction. - Re-Assessments/Exams Free Text/Narrative Re-Assessment/Exam: 04/08/21 12:05 I reviewed the findings of the CT with the urology at [facility]. They feel that he should be able to pass the 7.5 and 8 mm stones without difficulty. We will put the patient on Flomax 0.4 mg daily and have him push 10 ounces of water every hour he is awake. We will send him home with a prescription for hydrocodone for pain. Indications to return to the ED were discussed. 04/08/21 12:43 urinalysis is unremarkable for any infection. At this time the patient is suitable for discharge home in satisfactory condition. 04/08/21 12:45 Departure - Departure Time of Disposition: 12:45 Disposition: Home, Self-Care 01 Clinical Impression: Calcium ureterolithiasis, Renal colic on left side Hydronephrosis Qualifiers: Hydronephrosis type: with ureteral calculous obstruction Qualified Code(s): N 13.2 - Hydronephrosis with renal and ureteral calculous obstruction - Discharge Information Instructions: Hydronephrosis, Renal Colic, [id number], Kidney Stones, [id number] Referrals: Jerome Myrick MD [Primary Care Provider] - Forms: ED Department Discharge Care Plan Goals: We will continue to treat your kidney stone in the ureter with increased fluids. I had like you to drink 10 ounces of water every hour you are awake for the next week. In addition, we are starting you on Flomax to help increase urine flow and relax the ureter. I am sending you home with hydrocodone for pain control. I anticipate you should be able to pass this in the next day or 2. You may take ibuprofen for pain control and use the hydrocodone for breakthrough pain. If pain significantly worsens or you develop a new fever please return to the ED for reevaluation. Sepsis Event Note (ED) - Focused Exam Vital Signs: Vital Signs Temp Pulse Resp BP Pulse Ox 04/08/21 08:30 36.6 C 87 20 125/68 96 04/08/21 08:20 36.6 C 87 20 125/68 96 - Problem List & Annotations (1) Calcium ureterolithiasis SNOMED Code(s): 86060777 Code(s): N20.1 - CALCULUS OF URETER Status: Acute Current Visit: Yes (2) Hydronephrosis SNOMED Code(s): 86726404 Code(s): N13.30 - UNSPECIFIED HYDRONEPHROSIS Status: Acute Current Visit: Yes (3) Renal colic on left side SNOMED Code(s): 3464361 Code(s): N23 - UNSPECIFIED RENAL COLIC Status: Acute Current Visit: Yes - Problem List Review Problem List Initiated/Reviewed/Updated: Yes - My Orders Last 24 Hours: My Active Orders 04/08/21 08:44 Sodium Chloride 0.9% [Saline Flush] 10 ml FLUSH ASDIRECTED PRN Saline Lock Insert [OM.PC] Routine 04/08/21 08:45 Sodium Chloride 0.9% [Normal Saline] 1,000 ml IV ASDIRECTED 04/08/21 08:47 BABESIA MICROTI ANTIBODY PANEL Urgent HUMAN GRANULOCYTIC BRIAN-HGE Urgent 04/08/21 10:30 Sodium Chloride 0.9% [Normal Saline] 1,000 ml IV ASDIRECTED - Assessment/Plan Last 24 Hours: My Active Orders 04/08/21 08:44 Sodium Chloride 0.9% [Saline Flush] 10 ml FLUSH ASDIRECTED PRN Saline Lock Insert [OM.PC] Routine 04/08/21 08:45 Sodium Chloride 0.9% [Normal Saline] 1,000 ml IV ASDIRECTED 04/08/21 08:47 BABESIA MICROTI ANTIBODY PANEL Urgent HUMAN GRANULOCYTIC BRIAN-HGE Urgent 04/08/21 10:30 Sodium Chloride 0.9% [Normal Saline] 1,000 ml IV ASDIRECTED
[2021-04-08] MEDS ORDERED: Sodium Chloride 0.9% 10 ML Syringe FLUSH PRN (08:44)
[2021-04-08] MEDS ORDERED: Sodium Chloride 0.9% 1,000 ML IV SCH ×2 (08:45→10:30)
[2021-04-08] MEDS ORDERED: Ondansetron 4 MG/2 ML SDV IVPUSH ONE (09:31)
[2021-04-08] MEDS ORDERED: HYDROmorphone 1 MG/ML Syringe IVPUSH ONE (09:31)
[2021-04-08] MEDS ORDERED: Tamsulosin 0.4 MG Cap.ER PO ONE (10:00)
--- NOTE | 2021-04-08 10:10 | CT ---
Abdomen Pelvis wo Cont CLINICAL HISTORY: Left flank pain COMPARISON: 03/31/2021. TECHNIQUE: Axial tomographic images are obtained from the dome of the diaphragm to the pubic symphysis without IV contrast enhancement. No oral contrast was used. The dosage reduction and iterative reconstruction techniques employed. FINDINGS: The lung bases are free of infiltrate. There is a 3 mm nodule in the left lower lobe on image #19. Chronology is unknown. The liver shows no mass or biliary dilatation. The gallbladder has been removed. The spleen has a normal size and shape. The pancreas shows no mass or inflammatory change. The adrenal glands appear normal bilaterally. The right kidney contains a 3.4 x 2.7 cm cyst off the upper pole. There is a 1.5 cm cyst in the midpole. There are some punctate calcifications bilaterally which may be vascular. There is left-sided hydronephrosis. There is a 7 x 5 mm stone in the distal third of the left ureter near the vessel crossing. There is an 8 mm calcification just below this. Right ureter has normal course and contour. Bladder has normal configuration. There is some prostatic enlargement. Patient has an aorto iliac stent graft in place. IMPRESSION: Left-sided hydronephrosis and mild hydroureter. 2 calcifications are seen in the path the left ureter. One at the crossing of the iliac vessels. The other is just below this. Distal ureter has normal caliber. These are felt to be partially obstructing Aorto iliac stent graft Right renal cysts
[2021-04-13 14:12] LABS: BABESIA MICROTI IGG <1:10 (Neg:<1:10); BABESIA MICROTI IGM <1:10 (Neg:<1:10); HGE IGG TITER Negative (Neg:<1:64); HGE IGM TITER Negative (Neg:<1:20)
== END 2021-04-08 13:18 | disposition home or self-care (01) ==
LOC: JP.ED 07:58
DX: N13.2 Hydronephrosis with renal and ureteral calculous obstruction (principal); I25.10 Atherosclerotic heart disease of native coronary artery without angina pectoris; E78.00 Pure hypercholesterolemia, unspecified; I10 Essential (primary) hypertension; I25.2 Old myocardial infarction; J44.9 Chronic obstructive pulmonary disease, unspecified; M10.9 Gout, unspecified; E11.9 Type 2 diabetes mellitus without complications; Z86.73 Personal history of transient ischemic attack (TIA), and cerebral infarction without residual deficits; Z79.01 Long term (current) use of anticoagulants; Z79.02 Long term (current) use of antithrombotics/antiplatelets; Z79.84 Long term (current) use of oral hypoglycemic drugs; Z79.899 Other long term (current) drug therapy
CPT/HCPCS: 36415; 74176; 80053; 81001; 85025; 86140; 86618; 86666; 86753; 96374; 96375; 99284; A9270; J1170; J2405; J7030

== ENCOUNTER 2021-05-01 12:16 | Emergency (ER) | payer MEDICARE, BC ==
[2021-05-01] MEDS ORDERED: Sodium Chloride 0.9% 1,000 ML IV SCH (14:00)
--- NOTE | 2021-05-01 14:17 | EDM.PDOC ---
ED HPI GENERAL MEDICAL PROBLEM - General Chief Complaint: General Stated Complaint: NOT EATING, FEVER, CHILLS Time Seen by Provider: 05/01/21 13:10 Source of Information: Reports: Patient, Family History Limitations: Reports: No Limitations - History of Present Illness INITIAL COMMENTS - FREE TEXT/NARRATIVE: 65-year-old male with nausea and vomiting for the past 2 days, but ongoing weakness, weight loss, and generalized malaise for the past couple of months. He has had several visits with physicians who are following labs and setting up tests because of his weakness. A hemoglobin last week was 8.8, this is significantly lower than 2 or 3 months ago. He says he has normal colored stool, no epistaxis or hematemesis. Some mild intermittent abdominal pain. No shortness of breath. His main concern today is he just received his lab results along with the fact that he has nausea and vomiting for the past 48 hours. Onset: Sudden (Nausea and vomiting fairly sudden onset 48 hours ago) Improves with: Reports: None Worsens with: Reports: Eating (Worsens when he tries to eat or drink anything) Associated Symptoms: Reports: Loss of Appetite, Malaise, Nausea/Vomiting, Weakness, Other (Significant weight loss). Denies: Confusion, Chest Pain Epigastric Pain Score (Numeric/FACES): 8 - Related Data Allergies Allergy/AdvReac Type Severity Reaction Status Date / Time No Known Allergies Allergy Verified 05/01/21 13:11 Home Meds: Home Meds Albuterol Sulfate [Albuterol Sulfate Hfa] 2 puff INH Q6H PRN 04/21/19 [History] Budesonide/Formoterol [Symbicort 160-4.5 MCG] 2 puff INH BID 04/21/19 [History] Cholecalciferol (Vitamin D3) [D3-2000] 4,000 units PO BID 04/21/19 [History] Lisinopril 20 mg PO DAILY 04/21/19 [History] Omeprazole 20 mg PO DAILY 04/21/19 [History] Tiotropium [Spiriva HandiHaler] 2 puff INH DAILY 04/21/19 [History] allopurinoL [Zyloprim] 300 mg PO DAILY 04/21/19 [History] atorvaSTATin [Lipitor] 80 mg PO DAILY 04/21/19 [History] Metoprolol Succinate 100 mg PO DAILY 05/27/19 [History] Albuterol Sulfate 0.63 mg IH Q4H PRN 01/09/21 [History] Melatonin 3 mg PO BEDTIME 01/09/21 [History] metFORMIN HCl [Metformin HCl ER] 500 mg PO DAILY 01/09/21 [History] Apixaban [Eliquis] 5 mg PO BID 03/31/21 [History] Riboflavin (Vitamin B2) [Vitamin B-2] 200 mg PO DAILY 03/31/21 [History] Acetaminophen/HYDROcodone [HYDROcodone-Acetaminophen 5-325 MG *] 1 tab PO Q4H PRN #10 each 04/08/21 [Rx] Past Medical History HEENT History: Reports: Impaired Vision Cardiovascular History: Reports: CAD, High Cholesterol, Hypertension, [place], PVD, Stents Respiratory History: Reports: COPD, SOB Musculoskeletal History: Reports: Gout Neurological History: Reports: CVA Endocrine/Metabolic History: Reports: Diabetes, Type II Hematologic History: Reports: Anemia Dermatologic History: Reports: Urticaria - Infectious Disease History Infectious Disease History: Reports: Chicken Pox, Measles, 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 GI Surgical History: Reports: Cholecystectomy Social & Family History - Tobacco Use Tobacco Use Status *Q: Current Every Day Tobacco User Years of Tobacco use: 48 Packs/Tins Daily: 1 Used Tobacco, but Quit: No - Caffeine Use Caffeine Use: Reports: None - Recreational Drug Use Recreational Drug Use: No ED ROS GENERAL - Review of Systems Review Of Systems: See Below Constitutional: Reports: Malaise, Decreased Appetite. Denies: Fever, Chills HEENT: Denies: Throat Pain, Vision Change Respiratory: Denies: Shortness of Breath Cardiovascular: Denies: Chest Pain, Palpitations GI/Abdominal: Reports: Nausea, Vomiting. Denies: Diarrhea Musculoskeletal: Reports: Other (Patient has chronic lower extremity edema) Skin: Reports: Bruising (Bruises easily) Neurological: Reports: Weakness ED EXAM, GENERAL - Physical Exam Exam: See Below Exam Limited By: No Limitations General Appearance: Alert, No Apparent Distress Eye Exam: Bilateral Eye: Other (Conjunctiva appear pale, well hydrated) Throat/Mouth: Normal Inspection Head: Atraumatic Neck: Supple, Non-Tender Respiratory/Chest: Lungs Clear Cardiovascular: Regular Rate, Rhythm. No: Extra Beats GI/Abdominal: Soft, Tender (Does react with some tenderness to palpation over the mid abdomen, no focal rebound or tenderness) Extremities: Other (Pitting 2+ edema both lower extremities) Neurological: Alert, Oriented Psychiatric: Normal Affect, Normal Mood Course - Vital Signs Last Recorded V/S: Last Vital Signs Temp 97.8 F 05/01/21 13:17 Pulse 100 05/01/21 13:17 Resp 20 05/01/21 13:17 BP 110/65 05/01/21 13:17 Pulse Ox 98 05/01/21 13:17 - Orders/Labs/Meds Labs: Laboratory Tests 05/01/21 05/01/21 Range/Units 13:56 13:56 WBC 7.7 (4.5-11.0) K/uL RBC 2.84 L (4.30-5.90) M/uL Hgb 10.0 L (12.0-15.0) g/dL Hct 31.1 L (40.0-54.0) % MCV 110 H (80-98) fL MCH 35 H (27-31) pg MCHC 32 (32-36) % Plt Count 232 (150-400) K/uL Neut % (Auto) 34.2 L (36-66) % Lymph % (Auto) 37.5 (24-44) % [place] % (Auto) 25.5 H (2-6) % Eos % (Auto) 1.2 L (2-4) % Baso % (Auto) 1.6 H (0-1) % Sodium 139 L (140-148) mmol/L Potassium 4.2 (3.6-5.2) mmol/L Chloride 101 (100-108) mmol/L Carbon Dioxide 30 (21-32) mmol/L Anion Gap 12.2 (5.0-14.0) mmol/L BUN 14 (7-18) mg/dL Creatinine 1.1 (0.8-1.3) mg/dL Est Cr Clr Drug Dosing 74.65 mL/min Estimated GFR (MDRD) > 60 (>60) Glucose 124 H (74-106) mg/dL Calcium 9.3 (8.5-10.1) mg/dL Total Bilirubin 0.4 (0.2-1.0) mg/dL AST 47 H D (15-37) U/L ALT 70 D (12-78) U/L Alkaline Phosphatase 82 (46-116) U/L Total Protein 7.8 (6.4-8.2) g/dL Albumin 2.5 L (3.4-5.0) g/dL Globulin 5.3 H (2.3-3.5) g/dL Albumin/Globulin Ratio 0.5 L (1.2-2.2) Lipase 55 L (73-393) U/L Meds: Medications Discontinued Medications Generic Name Dose Route Start Last Admin Trade Name Freq PRN Reason Stop Dose Admin Sodium Chloride 1,000 mls @ 1,000 mls/hr 05/01/21 14:00 05/01/21 13:57 Normal Saline IV 1,000 mls/hr ASDIRECTED MARIE Administration Sodium Chloride 100 mls @ 3 mls/sec 05/01/21 15:00 05/01/21 15:16 Normal Saline IV 05/01/21 18:00 3 mls/sec ASDIRECTED MARIE Administration Iopamidol 130 ml 05/01/21 14:52 05/01/21 15:15 Iopamidol 612 Mg/Ml 150 Ml Bottle IV 05/02/21 14:53 130 ml . DIRECTED PRN Administration RADIOLOGY EXAM Sodium Chloride 10 ml 05/01/21 14:52 05/01/21 15:16 Sodium Chloride 0.9% 10 Ml Sdv FLUSH 05/01/21 14:53 10 ml ONETIME ONE Administration - Re-Assessments/Exams Free Text/Narrative Re-Assessment/Exam: 05/01/21 14:16 Did review his labs and there has been a significant decrease in hemoglobin over the past 2 months. CBC CMP were redrawn and patient will be given 1 L of normal saline. If kidneys are functioning normally, a CT of the abdomen and pelvis with IV contrast will be obtained. 05/01/21 16:28 Hemoglobin is now 10 but that may be hemoconcentration. 05/01/21 16:29 Glucose is 124, otherwise his CMP is within normal limits. CT the abdomen and pelvis with contrast shows no acute findings. After 1 L of fluid, the patient did use the bathroom but was still nauseated. A copy of the report of his CT scan as well as all of his labs were given to the patient and [facility] Myrick next week. I think he needs an upper GI or EGD. Departure - Departure Time of Disposition: 16:58 Disposition: Home, Self-Care 01 Clinical Impression: Anemia Qualifiers: Anemia type: iron deficiency Iron deficiency anemia type: unspecified iron deficiency Qualified Code(s): D50.9 - Iron deficiency anemia, unspecified Nausea and vomiting Qualifiers: Vomiting type: unspecified Vomiting Intractability: non-intractable Qualified Code(s): R11.2 - Nausea with vomiting, unspecified - Discharge Information Instructions: Nausea and Vomiting, Adult Referrals: Jerome Myrick MD [Primary Care Provider] - Forms: ED Department Discharge Care Plan Goals: Try to increase oral intake, especially fluids or protein drinks over the next [address] Myrick or the [place] to discuss lab results and further work-up options including an EGD which is a scope of your stomach. Return anytime if worsening such as persistent vomiting or increased pain. Sepsis Event Note (ED) - Evaluation Sepsis Screening Result: No Definite Risk
[2021-05-01] MEDS ORDERED: Iopamidol 612 MG/ML 150 ML Bottle IV PRN (14:52)
[2021-05-01] MEDS ORDERED: Sodium Chloride 0.9% 10 ML SDV FLUSH ONE (14:52)
[2021-05-01] MEDS ORDERED: Sodium Chloride 0.9% 100 ML IV SCH (15:00)
--- NOTE | 2021-05-01 16:15 | CRLCT ---
For Patients: As a result of the Century Cures Act, medical imaging exams and procedure reports are released immediately into your electronic medical record. You may view this report before your referring provider. If you have questions, please contact your health care provider. Indication: Weight loss. Anemia. Vomiting. Technique: Multiple contiguous axial images were obtained from the lung bases through the symphysis pubis after the intravenous administration 130 cc [id number]. Please note that all CT scans at this facility use dose modulation, iterative reconstruction, and/or weight-based dosing when appropriate to reduce radiation dose to as low as reasonably achievable. Comparison: 03/31/2021. Findings: The heart is normal in size. The lung bases are clear. Emphysematous changes of the lungs are identified. No infiltrate, pleural effusion, pneumothorax is identified. Coronary artery calcifications are identified. A trace hiatal hernias identified. The liver, spleen, pancreas, adrenals, and kidneys are normal. Bilateral renal cysts are identified, greater on the right than the left. No hydronephrosis is identified on the right. Minimal left-sided hydronephrosis is identified. When compared with the previous exam, this is improved. A 10 mm hyperdense lesion is identified in the superior pole of the right kidney. This is stable. No intrahepatic biliary ductal dilatation is identified. The small and large bowel are normal in caliber. No free fluid or free air is identified within the abdomen or pelvis. An aortic bifemoral stent graft is identified. Degenerative changes of the spine are identified. No lytic or blastic lesions are identified. In the pelvis, small fat containing bilateral inguinal hernias are identified. The prostate gland is normal. Prostatic calcifications are identified. The urinary bladder is normal. Degenerative changes of the spine are identified. No lytic or blastic lesions are identified. Impression: Improvement in the left-sided hydronephrosis and hydroureter. Aortic bi-iliac stent graft. Please note that all CT scans at this facility use dose modulation, iterative reconstruction, and/or weight-based dosing when appropriate to reduce radiation dose to as low as reasonably achievable. Dictated by Marissa Hays MD @ 05/01/2021 4:14:39 PM (Electronically Signed)
== END 2021-05-01 16:58 | disposition home or self-care (01) ==
LOC: JP.ED 12:16
DX: D50.9 Iron deficiency anemia, unspecified (principal); R11.2 Nausea with vomiting, unspecified; I25.10 Atherosclerotic heart disease of native coronary artery without angina pectoris; E78.00 Pure hypercholesterolemia, unspecified; I10 Essential (primary) hypertension; I25.2 Old myocardial infarction; J44.9 Chronic obstructive pulmonary disease, unspecified; M10.9 Gout, unspecified; E11.9 Type 2 diabetes mellitus without complications; Z72.0 Tobacco use; Z79.01 Long term (current) use of anticoagulants; Z79.84 Long term (current) use of oral hypoglycemic drugs; Z79.899 Other long term (current) drug therapy
CPT/HCPCS: 36415; 74177; 80053; 83690; 85025; 99285; J7030; Q9967

== ENCOUNTER 2021-06-20 07:22 | Emergency (ER) | payer MEDICARE, MEDICAID ==
[2021-06-20] MEDS ORDERED: Morphine 4 MG/ML Syringe IVPUSH PRN (07:27)
[2021-06-20] MEDS ORDERED: Sodium Chloride 0.9% 10 ML Syringe FLUSH PRN ×2 (07:27→09:37)
[2021-06-20] MEDS ORDERED: Aspirin 81 MG Tab.Chew PO ONE (07:27)
--- NOTE | 2021-06-20 07:32 | EDM.PDOC ---
ED HPI GENERAL MEDICAL PROBLEM - General Chief Complaint: Chest Pain Stated Complaint: CHEST PAIN VIA [facility] Time Seen by Provider: 06/20/21 07:26 Source of Information: Reports: Patient, EMS, RN Notes Reviewed History Limitations: Reports: No Limitations - History of Present Illness INITIAL COMMENTS - FREE TEXT/NARRATIVE: 65-year-old gentleman presents emergency department day complaint of chest pain states his chest pain started yesterday really some shortness of breath he was able to tolerate it but then this morning at 4:00 chest pain became quite severe he feels short of breath no diaphoresis no nausea vomiting he does have an extensive cardiac history Middle Chest Pain Score (Numeric/FACES): 10 - Related Data Allergies Allergy/AdvReac Type Severity Reaction Status Date / Time No Known Allergies Allergy Verified 06/20/21 07:33 Home Meds: Home Meds Albuterol Sulfate [Albuterol Sulfate Hfa] 2 puff INH Q6H PRN 04/21/19 [History] Budesonide/Formoterol [Symbicort 160-4.5 MCG] 2 puff INH BID 04/21/19 [History] Cholecalciferol (Vitamin D3) [D3-2000] 4,000 units PO BID 04/21/19 [History] Lisinopril 40 mg PO DAILY 04/21/19 [History] Omeprazole 20 mg PO DAILY 04/21/19 [History] Tiotropium [Spiriva HandiHaler] 2 puff INH DAILY 04/21/19 [History] allopurinoL [Zyloprim] 300 mg PO DAILY 04/21/19 [History] atorvaSTATin [Lipitor] 80 mg PO DAILY 04/21/19 [History] Metoprolol Succinate 100 mg PO DAILY 05/27/19 [History] Albuterol Sulfate 0.63 mg IH Q4H PRN 01/09/21 [History] Melatonin 3 mg PO BEDTIME 01/09/21 [History] metFORMIN HCl [Metformin HCl ER] 500 mg PO DAILY 01/09/21 [History] Apixaban [Eliquis] 5 mg PO BID 03/31/21 [History] Riboflavin (Vitamin B2) [Vitamin B-2] 200 mg PO BID 03/31/21 [History] Metoprolol Succinate 50 mg PO DAILY 06/20/21 [History] Past Medical History HEENT History: Reports: Impaired Vision Cardiovascular History: Reports: CAD, High Cholesterol, Hypertension, NE, PVD, Stents Respiratory History: Reports: COPD, SOB Musculoskeletal History: Reports: Gout Neurological History: Reports: CVA Endocrine/Metabolic History: Reports: Diabetes, Type II Hematologic History: Reports: Anemia Dermatologic History: Reports: Urticaria - Infectious Disease History Infectious Disease History: Reports: Chicken Pox, Measles, 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 GI Surgical History: Reports: Cholecystectomy Social & Family History - Caffeine Use Caffeine Use: Reports: None ED ROS GENERAL - Review of Systems Review Of Systems: See Below Constitutional: Reports: No Symptoms HEENT: Reports: No Symptoms Respiratory: Reports: Shortness of Breath Cardiovascular: Reports: Chest Pain, Dyspnea on Exertion GI/Abdominal: Reports: No Symptoms ED EXAM, GENERAL - Physical Exam Exam: See Below Exam Limited By: No Limitations General Appearance: Alert, Mild Distress Respiratory/Chest: No Respiratory Distress, Lungs Clear, Normal Breath Sounds, No Accessory Muscle Use, Chest Non-Tender Cardiovascular: Tachycardia GI/Abdominal: Soft, Non-Tender Course - Vital Signs Last Recorded V/S: Last Vital Signs Temp 98.2 F 06/20/21 14:29 Pulse 114 H 06/20/21 18:31 Resp 24 H 06/20/21 18:45 BP 113/67 06/20/21 18:45 Pulse Ox 97 06/20/21 18:45 - Orders/Labs/Meds Orders: Active Orders 24 hr Category Date Time Status Cardiac Monitoring [RC] .As Directed Care 06/20/21 07:27 Active Peripheral IV Care [RC] . DIRECTED Care 06/20/21 07:28 Active CULTURE BLOOD [BC] Urgent Lab 06/20/21 14:00 Received CULTURE BLOOD [BC] Urgent Lab 06/20/21 14:10 Received Morphine Med 06/20/21 07:27 Active 4 mg IVPUSH Q10M PRN Norepinephrine [Levophed] 4 mg Med 06/20/21 09:30 Active Dextrose 5% in Water 246 ml IV TITRATE Piperacillin/Tazobactam [Zosyn] 3.375 gm Med 06/20/21 14:00 Active Sodium Chloride 0.9% [Normal Saline AdvBag] 50 ml IV ONETIME Sodium Chloride 0.9% [Normal Saline] 1,000 ml Med 06/20/21 07:45 Active IV ASDIRECTED Sodium Chloride 0.9% [Saline Flush] Med 06/20/21 07:27 Active 10 ml FLUSH ASDIRECTED PRN Blood Culture x2 Reflex Set [OM.PC] Urgent Ot 06/20/21 13:48 Ordered Isolation [COMM] Stat Ot 06/20/21 13:59 Ordered Peripheral IV Insertion Adult [OM.PC] Stat Ot 06/20/21 07:27 Ordered Saline Lock Insert [OM.PC] Stat Ot 06/20/21 07:27 Ordered Medication Orders Sodium Chloride (Normal Saline) 1,000 mls @ 500 mls/hr IV ASDIRECTED MARIE Last Admin: 06/20/21 07:44 Dose: 500 mls/hr Documented by: ENRRIQUE Norepinephrine Bitartrate 4 mg (/ Dextrose/Water) 250 mls @ 7.5 mls/hr IV TITRATE MARIE; Protocol Last Titration: 06/20/21 18:46 Dose: 2 mcg/min, 7.5 mls/hr Documented by: Titration: 06/20/21 17:57 Dose: 3 mcg/min, 11.25 mls/hr Documented by: Titration: 06/20/21 15:41 Dose: 5 mcg/min, 18.75 mls/hr Documented by: Titration: 06/20/21 14:30 Dose: 7 mcg/min, 26.25 mls/hr Documented by: Titration: 06/20/21 10:46 Dose: 9 mcg/min, 33.75 mls/hr Documented by: Titration: 06/20/21 10:42 Dose: 8 mcg/min, 30 mls/hr Documented by: Titration: 06/20/21 09:57 Dose: 7 mcg/min, 26.25 mls/hr Documented by: Titration: 06/20/21 09:52 Dose: 6 mcg/min, 22.5 mls/hr Documented by: Titration: 06/20/21 09:48 Dose: 5 mcg/min, 18.75 mls/hr Documented by: Titration: 06/20/21 09:42 Dose: 4 mcg/min, 15 mls/hr Documented by: Titration: 06/20/21 09:37 Dose: 3 mcg/min, 11.25 mls/hr Documented by: Admin: 06/20/21 09:27 Dose: 2 mcg/min, 7.5 mls/hr Documented by: ENRRIQUE Piperacillin Sod/Tazobactam (Sod 3.375 gm/ Sodium Chloride) 50 mls @ 100 mls/hr IV ONETIME MARIE Last Admin: 06/20/21 14:24 Dose: 100 mls/hr Documented by: ENRRIQUE Morphine Sulfate (Morphine 4 Mg/Ml Syringe) 4 mg IVPUSH Q10M PRN PRN Reason: Chest Pain Stop: 06/21/21 07:28 Last Admin: 06/20/21 07:35 Dose: 4 mg Documented by: ENRRIQUE Sodium Chloride (Sodium Chloride 0.9% 10 Ml Syringe) 10 ml FLUSH ASDIRECTED PRN PRN Reason: Keep Vein Open Last Admin: 06/20/21 07:37 Dose: 10 ml Documented by: ENRRIQUE Labs: Laboratory Tests 06/20/21 06/20/21 06/20/21 Range/Units 07:27 07:27 12:30 WBC 10.4 (4.5-11.0) K/uL RBC 2.25 L (4.30-5.90) M/uL Hgb 8.2 L (12.0-15.0) g/dL Hct 25.9 L (40.0-54.0) % MCV 115 H (80-98) fL MCH 36 H (27-31) pg MCHC 32 (32-36) % Plt Count 93 L (150-400) K/uL Neut % (Auto) 36.9 (36-66) % Lymph % (Auto) 21.9 L (24-44) % Yancey % (Auto) 38.2 H (2-6) % Eos % (Auto) 0.8 L (2-4) % Baso % (Auto) 2.2 H (0-1) % Add Manual Diff Neutrophils % (Manual) (36-66) % Band Neutrophils % (5-11) % Lymphocytes % (Manual) (24-44) % Monocytes % (Manual) (2-6) % Eosinophils % (Manual) (2-4) % Basophils % (Manual) (0-1) % Blast Cells % % Atypical Lymphocytes Sodium 133 L (140-148) mmol/L Potassium 4.5 (3.6-5.2) mmol/L Chloride 98 L (100-108) mmol/L Carbon Dioxide 24 (21-32) mmol/L Anion Gap 15.5 H (5.0-14.0) mmol/L BUN 10 (7-18) mg/dL Creatinine 1.2 (0.8-1.3) mg/dL Est Cr Clr Drug Dosing 68.43 mL/min Estimated GFR (MDRD) > 60 (>60) Glucose 171 H (74-106) mg/dL Lactic Acid (0.4-2.0) mmol/L Calcium 8.8 (8.5-10.1) mg/dL Total Bilirubin 0.8 D (0.2-1.0) mg/dL AST 32 (15-37) U/L ALT 55 (12-78) U/L Alkaline Phosphatase 81 (46-116) U/L Troponin I < 0.017 < 0.017 (0.000-0.056) ng/mL C-Reactive Protein (0.0-0.3) mg/dL Total Protein 7.4 (6.4-8.2) g/dL Albumin 2.2 L (3.4-5.0) g/dL Globulin 5.2 H (2.3-3.5) g/dL Albumin/Globulin Ratio 0.4 L (1.2-2.2) Procalcitonin ng/mL Urine Color (YELLOW) Urine Appearance (CLEAR) Urine pH (5.0-8.0) Ur Specific [place] (1.008-1.030) Urine Protein (NEGATIVE) mg/dL Urine Glucose (UA) (NEGATIVE) mg/dL Urine Ketones (NEGATIVE) mg/dL Urine Occult Blood (NEGATIVE) Urine Nitrite (NEGATIVE) Urine Bilirubin (NEGATIVE) Urine Urobilinogen (0.2-1.0) EU/dL Ur Leukocyte Esterase (NEGATIVE) Urine RBC (0-5) Urine WBC (0-5) Ur Epithelial Cells Amorphous Sediment Urine Bacteria Urine Mucus Influenza Type A RNA (NEGATIVE) RSV RNA (INAAT) (NEGATIVE) Influenza Type B RNA (NEGATIVE) SARS-CoV-2 RNA (DERICK) (NEGATIVE) 06/20/21 06/20/21 06/20/21 Range/Units 13:59 14:00 14:00 WBC (4.5-11.0) K/uL RBC (4.30-5.90) M/uL Hgb (12.0-15.0) g/dL Hct (40.0-54.0) % MCV (80-98) fL MCH (27-31) pg MCHC (32-36) % Plt Count (150-400) K/uL Neut % (Auto) (36-66) % Lymph % (Auto) (24-44) % Yancey % (Auto) (2-6) % Eos % (Auto) (2-4) % Baso % (Auto) (0-1) % Add Manual Diff Neutrophils % (Manual) (36-66) % Band Neutrophils % (5-11) % Lymphocytes % (Manual) (24-44) % Monocytes % (Manual) (2-6) % Eosinophils % (Manual) (2-4) % Basophils % (Manual) (0-1) % Blast Cells % % Atypical Lymphocytes Sodium (140-148) mmol/L Potassium (3.6-5.2) mmol/L Chloride (100-108) mmol/L Carbon Dioxide (21-32) mmol/L Anion Gap (5.0-14.0) mmol/L BUN (7-18) mg/dL Creatinine (0.8-1.3) mg/dL Est Cr Clr Drug Dosing mL/min Estimated GFR (MDRD) (>60) Glucose (74-106) mg/dL Lactic Acid 1.8 (0.4-2.0) mmol/L Calcium (8.5-10.1) mg/dL Total Bilirubin (0.2-1.0) mg/dL AST (15-37) U/L ALT (12-78) U/L Alkaline Phosphatase (46-116) U/L Troponin I (0.000-0.056) ng/mL C-Reactive Protein (0.0-0.3) mg/dL Total Protein (6.4-8.2) g/dL Albumin (3.4-5.0) g/dL Globulin (2.3-3.5) g/dL Albumin/Globulin Ratio (1.2-2.2) Procalcitonin 0.38 ng/mL Urine Color (YELLOW) Urine Appearance (CLEAR) Urine pH (5.0-8.0) Ur Specific [place] (1.008-1.030) Urine Protein (NEGATIVE) mg/dL Urine Glucose (UA) (NEGATIVE) mg/dL Urine Ketones (NEGATIVE) mg/dL Urine Occult Blood (NEGATIVE) Urine Nitrite (NEGATIVE) Urine Bilirubin (NEGATIVE) Urine Urobilinogen (0.2-1.0) EU/dL Ur Leukocyte Esterase (NEGATIVE) Urine RBC (0-5) Urine WBC (0-5) Ur Epithelial Cells Amorphous Sediment Urine Bacteria Urine Mucus Influenza Type A RNA Negative (NEGATIVE) RSV RNA (INAAT) Negative (NEGATIVE) Influenza Type B RNA Negative (NEGATIVE) SARS-CoV-2 RNA (DERICK) Negative (NEGATIVE) 06/20/21 06/20/21 06/20/21 Range/Units 14:00 17:41 17:41 WBC 11.6 H (4.5-11.0) K/uL RBC 2.05 L (4.30-5.90) M/uL Hgb 7.5 L (12.0-15.0) g/dL Hct 23.9 L (40.0-54.0) % MCV 117 H (80-98) fL MCH 37 H (27-31) pg MCHC 31 L (32-36) % Plt Count 88 L (150-400) K/uL Neut % (Auto) (36-66) % Lymph % (Auto) (24-44) % Yancey % (Auto) (2-6) % Eos % (Auto) (2-4) % Baso % (Auto) (0-1) % Add Manual Diff Yes Neutrophils % (Manual) 29 L (36-66) % Band Neutrophils % 1 L (5-11) % Lymphocytes % (Manual) 20 L (24-44) % Monocytes % (Manual) 46 H (2-6) % Eosinophils % (Manual) 1 L (2-4) % Basophils % (Manual) 1 (0-1) % Blast Cells % 2 % Atypical Lymphocytes Few Sodium (140-148) mmol/L Potassium (3.6-5.2) mmol/L Chloride (100-108) mmol/L Carbon Dioxide (21-32) mmol/L Anion Gap (5.0-14.0) mmol/L BUN (7-18) mg/dL Creatinine (0.8-1.3) mg/dL Est Cr Clr Drug Dosing mL/min Estimated GFR (MDRD) (>60) Glucose (74-106) mg/dL Lactic Acid (0.4-2.0) mmol/L Calcium (8.5-10.1) mg/dL Total Bilirubin (0.2-1.0) mg/dL AST (15-37) U/L ALT (12-78) U/L Alkaline Phosphatase (46-116) U/L Troponin I < 0.017 (0.000-0.056) ng/mL C-Reactive Protein 13.74 H (0.0-0.3) mg/dL Total Protein (6.4-8.2) g/dL Albumin (3.4-5.0) g/dL Globulin (2.3-3.5) g/dL Albumin/Globulin Ratio (1.2-2.2) Procalcitonin ng/mL Urine Color (YELLOW) Urine Appearance (CLEAR) Urine pH (5.0-8.0) Ur Specific [place] (1.008-1.030) Urine Protein (NEGATIVE) mg/dL Urine Glucose (UA) (NEGATIVE) mg/dL Urine Ketones (NEGATIVE) mg/dL Urine Occult Blood (NEGATIVE) Urine Nitrite (NEGATIVE) Urine Bilirubin (NEGATIVE) Urine Urobilinogen (0.2-1.0) EU/dL Ur Leukocyte Esterase (NEGATIVE) Urine RBC (0-5) Urine WBC (0-5) Ur Epithelial Cells Amorphous Sediment Urine Bacteria Urine Mucus Influenza Type A RNA (NEGATIVE) RSV RNA (INAAT) (NEGATIVE) Influenza Type B RNA (NEGATIVE) SARS-CoV-2 RNA (DERICK) (NEGATIVE) 06/20/21 06/20/21 Range/Units 17:41 17:48 WBC (4.5-11.0) K/uL RBC (4.30-5.90) M/uL Hgb (12.0-15.0) g/dL Hct (40.0-54.0) % MCV (80-98) fL MCH (27-31) pg MCHC (32-36) % Plt Count (150-400) K/uL Neut % (Auto) (36-66) % Lymph % (Auto) (24-44) % Yancey % (Auto) (2-6) % Eos % (Auto) (2-4) % Baso % (Auto) (0-1) % Add Manual Diff Neutrophils % (Manual) (36-66) % Band Neutrophils % (5-11) % Lymphocytes % (Manual) (24-44) % Monocytes % (Manual) (2-6) % Eosinophils % (Manual) (2-4) % Basophils % (Manual) (0-1) % Blast Cells % % Atypical Lymphocytes Sodium 134 L (140-148) mmol/L Potassium 4.6 (3.6-5.2) mmol/L Chloride 100 (100-108) mmol/L Carbon Dioxide 25 (21-32) mmol/L Anion Gap 13.6 (5.0-14.0) mmol/L BUN 13 (7-18) mg/dL Creatinine 1.4 H (0.8-1.3) mg/dL Est Cr Clr Drug Dosing 58.66 mL/min Estimated GFR (MDRD) 51 L (>60) Glucose 176 H (74-106) mg/dL Lactic Acid (0.4-2.0) mmol/L Calcium 8.7 (8.5-10.1) mg/dL Total Bilirubin (0.2-1.0) mg/dL AST (15-37) U/L ALT (12-78) U/L Alkaline Phosphatase (46-116) U/L Troponin I (0.000-0.056) ng/mL C-Reactive Protein (0.0-0.3) mg/dL Total Protein (6.4-8.2) g/dL Albumin (3.4-5.0) g/dL Globulin (2.3-3.5) g/dL Albumin/Globulin Ratio (1.2-2.2) Procalcitonin ng/mL Urine Color Yellow (YELLOW) Urine Appearance Slightly cloudy A (CLEAR) Urine pH 5.5 (5.0-8.0) Ur Specific [place] 1.010 (1.008-1.030) Urine Protein 30 H (NEGATIVE) mg/dL Urine Glucose (UA) Negative (NEGATIVE) mg/dL Urine Ketones Negative (NEGATIVE) mg/dL Urine Occult Blood Trace-intact H (NEGATIVE) Urine Nitrite Negative (NEGATIVE) Urine Bilirubin Negative (NEGATIVE) Urine Urobilinogen 2.0 H (0.2-1.0) EU/dL Ur Leukocyte Esterase Negative (NEGATIVE) Urine RBC 0-5 (0-5) Urine WBC 0-5 (0-5) Ur Epithelial Cells Rare Amorphous Sediment Moderate Urine Bacteria Rare Urine Mucus Not seen Influenza Type A RNA (NEGATIVE) RSV RNA (INAAT) (NEGATIVE) Influenza Type B RNA (NEGATIVE) SARS-CoV-2 RNA (DERICK) (NEGATIVE) Meds: Medications Generic Name Dose Route Start Last Admin Trade Name Freq PRN Reason Stop Dose Admin Sodium Chloride 1,000 mls @ 500 mls/hr 06/20/21 07:45 06/20/21 07:44 Normal Saline IV 500 mls/hr ASDIRECTED MARIE Administration Norepinephrine Bitartrate 4 mg 250 mls @ 7.5 mls/hr 06/20/21 09:30 06/20/21 18:46 / Dextrose/Water IV 2 mcg/min TITRATE MARIE 7.5 mls/hr Titration Protocol 2 MCG/MIN Piperacillin Sod/Tazobactam 50 mls @ 100 mls/hr 06/20/21 14:00 06/20/21 14:24 Sod 3.375 gm/ Sodium Chloride IV 100 mls/hr ONETIME MARIE Administration Morphine Sulfate 4 mg 06/20/21 07:27 06/20/21 07:35 Morphine 4 Mg/Ml Syringe IVPUSH 06/21/21 07:28 4 mg Q10M PRN Administration Chest Pain Sodium Chloride 10 ml 06/20/21 07:27 06/20/21 07:37 Sodium Chloride 0.9% 10 Ml Syringe FLUSH 10 ml ASDIRECTED PRN Administration Keep Vein Open Discontinued Medications Generic Name Dose Route Start Last Admin Trade Name Freq PRN Reason Stop Dose Admin Aspirin 324 mg 06/20/21 07:27 06/20/21 07:34 Aspirin 81 Mg Tab.Chew PO 06/20/21 07:28 324 mg ONETIME ONE Administration Sodium Chloride 80 mls @ 3 mls/sec 06/20/21 09:37 06/20/21 10:31 Normal Saline IV 06/20/21 09:38 3 mls/sec ONETIME ONE Administration Lactated Ringer's 1,000 mls @ 999 mls/hr 06/20/21 13:46 06/20/21 14:20 Ringers, Lactated IV 06/20/21 14:46 999 mls/hr BOLUS ONE Administration Iopamidol 100 ml 06/20/21 09:37 06/20/21 10:31 Iopamidol 612 Mg/Ml 100 Ml Bottle IV 100 ml . DIRECTED PRN Administration RADIOLOGY EXAM Ketorolac Tromethamine 30 mg 06/20/21 08:09 06/20/21 08:45 Ketorolac 30 Mg/Ml Sdv IVPUSH 06/20/21 08:10 30 mg ONETIME ONE Administration Lorazepam 0.5 mg 06/20/21 17:35 06/20/21 17:58 Lorazepam 2 Mg/Ml Sdv IVPUSH 06/20/21 17:36 0.5 mg ONETIME ONE Administration Ondansetron HCl 4 mg 06/20/21 07:38 06/20/21 07:45 Ondansetron 4 Mg/2 Ml Sdv IVPUSH 06/20/21 07:39 4 mg ONETIME ONE Administration Sodium Chloride 10 ml 06/20/21 09:37 06/20/21 10:31 Sodium Chloride 0.9% 10 Ml Syringe FLUSH 10 ml ONETIME PRN Administration PER RADIOLOGY PROTOCOL - Re-Assessments/Exams Free Text/Narrative Re-Assessment/Exam: 06/20/21 16:57 Called the [facility] they are currently reviewing his case to see if is acceptable for transfer Departure - Departure Time of Disposition: 19:00 Disposition: DC/Tfer to Acute Hospital 02 Reason for Transfer *Q: Other Condition: Fair Clinical Impression: Sepsis Qualifiers: Sepsis type: sepsis due to unspecified organism Sepsis acute organ dysfunction status: unspecified Qualified Code(s): A41.9 - Sepsis, unspecified organism Referrals: Jerome Myrick MD [Primary Care Provider] - Forms: ED Department Discharge Sepsis Event Note (ED) - Focused Exam Vital Signs: Vital Signs Temp Pulse Resp BP Pulse Ox 06/20/21 18:45 24 H 113/67 97 06/20/21 18:31 114 H 26 H 129/71 97 06/20/21 18:12 119 H 23 H 131/71 97 06/20/21 17:56 18 141/70 H 97 06/20/21 16:28 97 20 127/78 06/20/21 15:20 92 16 107/62 99 06/20/21 14:29 98.2 F 20 121/74 98 06/20/21 12:56 20 103/63 96 06/20/21 12:11 89 20 99/58 L 94 L 06/20/21 11:41 18 92/56 L 93 L 06/20/21 11:26 19 96/58 L 93 L 06/20/21 11:11 18 94/60 95 06/20/21 10:55 20 94/55 L 94 L 06/20/21 10:50 20 86/53 L 93 L 06/20/21 10:46 21 H 83/52 L 95 06/20/21 10:42 98.1 F 17 84/52 L 96 06/20/21 09:57 22 H 85/47 L 97 06/20/21 09:52 21 H 76/44 L 97 06/20/21 09:47 24 H 73/48 L 96 06/20/21 09:42 19 76/46 L 95 06/20/21 09:37 21 H 72/45 L 94 L 06/20/21 09:25 19 74/44 L 96 06/20/21 09:19 15 67/40 L 98 06/20/21 09:09 98.0 F 21 H 74/52 L 98 06/20/21 08:49 20 83/50 L 96 06/20/21 07:30 97.7 F 122 H 27 H 92/51 L 99 - My Orders Last 24 Hours: My Active Orders 06/20/21 07:27 Cardiac Monitoring [RC] .As Directed Morphine 4 mg IVPUSH Q10M PRN Sodium Chloride 0.9% [Saline Flush] 10 ml FLUSH ASDIRECTED PRN Peripheral IV Insertion Adult [OM.PC] Stat Saline Lock Insert [OM.PC] Stat 06/20/21 07:28 Peripheral IV Care [RC] . DIRECTED 06/20/21 07:45 Sodium Chloride 0.9% [Normal Saline] 1,000 ml IV ASDIRECTED 06/20/21 09:30 Norepinephrine [Levophed] 4 mg Dextrose 5% in Water 246 ml IV TITRATE 06/20/21 13:48 Blood Culture x2 Reflex Set [OM.PC] Urgent 06/20/21 13:59 Isolation [COMM] Stat 06/20/21 14:00 CULTURE BLOOD [BC] Urgent Piperacillin/Tazobactam [Zosyn] 3.375 gm Sodium Chloride 0.9% [Normal Saline AdvBag] 50 ml IV ONETIME 06/20/21 14:10 CULTURE BLOOD [BC] Urgent - Assessment/Plan Last 24 Hours: My Active Orders 06/20/21 07:27 Cardiac Monitoring [RC] .As Directed Morphine 4 mg IVPUSH Q10M PRN Sodium Chloride 0.9% [Saline Flush] 10 ml FLUSH ASDIRECTED PRN Peripheral IV Insertion Adult [OM.PC] Stat Saline Lock Insert [OM.PC] Stat 06/20/21 07:28 Peripheral IV Care [RC] . DIRECTED 06/20/21 07:45 Sodium Chloride 0.9% [Normal Saline] 1,000 ml IV ASDIRECTED 06/20/21 09:30 Norepinephrine [Levophed] 4 mg Dextrose 5% in Water 246 ml IV TITRATE 06/20/21 13:48 Blood Culture x2 Reflex Set [OM.PC] Urgent 06/20/21 13:59 Isolation [COMM] Stat 06/20/21 14:00 CULTURE BLOOD [BC] Urgent Piperacillin/Tazobactam [Zosyn] 3.375 gm Sodium Chloride 0.9% [Normal Saline AdvBag] 50 ml IV ONETIME 06/20/21 14:10 CULTURE BLOOD [BC] Urgent Plan: Assessment Acuity = acute Site and laterality = early sepsis with chest pain and shortness of breath Etiology = unknown Manifestations = hypotension now improved Location of injury = Home Lab values = no significant elevation in WBC, hemoglobin initially 8.5 now down to 7.5 after 2 L of fluid, creatinine initially 1.2 now 1.4 consistent with acute renal failure stage T3b lactic acid normal 1.8 troponin negative x3 unmeasurable CRP elevated 13.[address] scan reveals the following. MPRESSION: Trace to small pericardial effusion and/or pericardial thickening which does appear mildly increased from the prior exam, consider further evaluation with ECHO as clinically indicated. Redemonstration aorta bi-iliac stent with adjacent fat stranding which may be stable to minimally increased from the prior exam, indeterminate, correlate with clinical concern of infection versus chronic finding. Minimally prominent retroperitoneal lymph nodes as detailed above, sellar the prior exam. 8 millimeter stone is visualized within the distal left ureter without significant upstream hydroureteronephrosis. Main pulmonary artery is dilated at 3.4 centimeters, similar to the prior exam. Correlate for clinical concern of pulmonary arterial hypertension. Severe emphysematous changes of the lungs. Two pulmonary nodules within the left lung measuring up to 7 millimeters. Refer to Fleischner criteria below. Hepatomegaly with fatty infiltration. Redemonstration of bilateral renal lesions with again hyperdense upper pole right renal lesion measuring up to 1 centimeter can be further evaluated with ultrasound on a nonemergent basis. Covid 19 - influenza A and B- RSV negative Blood cultures pending Plan So far is received 2 L of fluid remains on a Levophed drip currently at 2 mics per minute call [facility] at 1845 kindly accept the patient in transport will be transported via EMS ground This note was dictated using [employer] voice recognition software please call with any questions on syntax or grammar.
[2021-06-20] MEDS ORDERED: Ondansetron 4 MG/2 ML SDV IVPUSH ONE (07:38)
[2021-06-20] MEDS ORDERED: Sodium Chloride 0.9% 1,000 ML IV SCH (07:45)
[2021-06-20] MEDS ORDERED: Ketorolac 30 MG/ML SDV IVPUSH ONE (08:09)
--- NOTE | 2021-06-20 09:13 | CRLCR ---
For Patients: As a result of the Century Cures Act, medical imaging exams and procedure reports are released immediately into your electronic medical record. You may view this report before your referring provider. If you have questions, please contact your health care provider. HISTORY: Chest pain. TECHNIQUE: One view of the chest. COMPARISON: 01/09/2021. FINDINGS: No acute lung infiltrate or pulmonary edema. No pneumothorax or pleural effusion. The heart size and pulmonary vasculature within normal limits. Degenerative changes of the spine. IMPRESSION: No acute disease. Dictated by Tom Albert MD @ 06/20/2021 9:11:37 AM Dictated by: Tom Albert MD @ 06/20/2021 09:11:43 (Electronically Signed)
[2021-06-20] MEDS ORDERED: Norepinephrine 4 MG in Dextrose 5% in Water 246 ML IV SCH ×2 (09:15)
[2021-06-20] MEDS: Norepinephrine 4 MG in Dextrose 5% in Water 246 ML IV SCH ×4 (09:27→19:59)
[2021-06-20] MEDS ORDERED: Sodium Chloride 0.9% 80 ML IV ONE (09:37)
[2021-06-20] MEDS ORDERED: Iopamidol 612 MG/ML 100 ML Bottle IV PRN (09:37)
--- NOTE | 2021-06-20 12:11 | CRLCT ---
For Patients: As a result of the 21st Century Cures Act, medical imaging exams and procedure reports are released immediately into your electronic medical record. You may view this report before your referring provider. If you have questions, please contact your health care provider. INDICATION: Chest pain. Hypotensive. Abdominal aortic aneurysm. TECHNIQUE: Volumetric helical scanning of the chest, abdomen and pelvis was performed with 100 cc of Isovue 300 contrast material IV. Coronal and sagittal reconstructions were obtained. COMPARISON: Abdomen/pelvis CT of 05/01/[address] of 03/31/2021. FINDINGS: CHEST: Aortic atherosclerotic disease is demonstrated. The ascending aorta, arch and descending aorta are normal in caliber. The heart size is normal. Coronary arterial stents are noted. There is a small pericardial effusion which is increased from the previous chest CT. Emphysema is again noted. No acute infiltrate is demonstrated. No significant airway abnormality is demonstrated. No pleural effusion is noted. A noncalcified 6 mm left lower lobe nodule is again demonstrated on image 108 of series 3. No axillary, mediastinal or hilar adenopathy is apparent. ABDOMEN/PELVIS: An aorto bi-iliac stent graft is again demonstrated. As before, stranding in the. Aortic fat is demonstrated and somewhat increased since 05/01/2021. Several adjacent retroperitoneal lymph nodes are somewhat larger than on the previous exam. Post op changes of cholecystectomy are again demonstrated. The liver, bile ducts, spleen, adrenal glands and pancreas are negative. A minimally obstructing 9 mm distal left ureteral stone is demonstrated roughly 3 cm proximal to the ureterovesical junction. This stone is unchanged in position from the previous examination. Slight left hydroureter and hydronephrosis is noted. A 2 mm stone is present in the right renal collecting system. Several renal parenchymal cysts are noted. There is a 1.3 cm parenchymal lesion along the anterior aspect of the lower left kidney which is suspect represent hyperdense cyst. The bladder is negative. The prostate is mildly enlarged No free fluid is apparent. The bowel is unremarkable. IMPRESSION: 1. Post AAA repair with aorto bi-iliac stent graft. Increased stranding in the periaortic fat and interval increase in size of several retroperitoneal lymph nodes. Findings suggest inflammation. Atherosclerotic disease in the thoracic aorta but no aneurysm evident. 2. Minimally obstructing 9 mm distal left ureteral stone roughly 3 cm proximal to the UVJ. Stone unchanged in position from the previous exam. 3. Renal parenchymal cysts and presumed 1.3 cm hyperdense parenchymal cyst in the anterior inferior right kidney. Ultrasound suggested for confirmation. 4. Noncalcified 6 mm left lower lobe nodule. Follow up in accordance with Fleischner Society Guidelines (see below) is recommended. 5. Emphysema. 6. Post cholecystectomy. 7. Mild prostate enlargement. FLEISCHNER SOCIETY GUIDELINES: LOW RISK: - nodule less than 6 mm: No follow-up needed. - nodule 6-8 mm: Initial follow-up CT at 6-12 months and then at 18-24 months if no change. - nodule greater than 8 mm: Follow-up CTs at around 3, 9, and 24 months. Dynamic contrast-enhanced CT, PET, and/or biopsy. MULTIPLE LOW RISK: - nodule less than 6 mm: No follow-up needed. - nodule 6-8 mm: CT at 3-6 months, then consider CT at 18-24 months. - nodule greater than 8 mm: CT at 3-6 months, then consider CT at 18-24 months. HIGH RISK: - nodule less than 6 mm: Follow-up at 12 months. If no change, no further imaging needed. - nodule 6-8 mm: Initial follow-up CT at 3-6 months and then at 9-12 and 24 months if no change. - nodule greater than 8 mm: Follow-up CTs at around 3, 9, and 24 months. Dynamic contrast-enhanced CT, PET, and/or biopsy. MULTIPLE HIGH RISK: - nodule less than 6 mm: Optional CT at 12 months. - nodule 6-8 mm: CT at 3-6 months, then at 18-24 months. - nodule greater than 8 mm: CT at 3-6 months, then at 18-24 months. HIGH RISK is defined as one or more of the following: - at least 20 pack-year smoking history or equivalent second-hand exposure. - personal history of cancer or family history of lung cancer. - occupational exposure (asbestos, beryllium, silica, uranium, radon) - chronic interstitial/fibrotic lung disease. Please note that all CT scans at this facility use dose modulation, iterative reconstruction, and/or weight-based dosing when appropriate to reduce radiation dose to as low as reasonably achievable. Dictated by Valente Nance MD @ 06/22/2021 3:34:20 PM (Electronically Signed)
[2021-06-20] MEDS ORDERED: Lactated Ringers 1,000 ML IV ONE (13:46)
[2021-06-20] MEDS ORDERED: Piperacillin/Tazobactam 3.375 GM in Sodium Chloride 0.9% 50 ML IV SCH (14:00)
[2021-06-20 14:56] LABS: CORONAVIRUS COVID-19 NAA NEGATIVE (NEGATIVE)
[2021-06-20] MEDS ORDERED: LORazepam 2 MG/ML SDV IVPUSH ONE (17:35)
== END 2021-06-20 21:16 ==
LOC: JP.ED 07:22
DX: A41.9 Sepsis, unspecified organism (principal); R00.0 Tachycardia, unspecified; I25.10 Atherosclerotic heart disease of native coronary artery without angina pectoris; E78.00 Pure hypercholesterolemia, unspecified; I10 Essential (primary) hypertension; I25.2 Old myocardial infarction; J44.9 Chronic obstructive pulmonary disease, unspecified; M10.9 Gout, unspecified; E11.9 Type 2 diabetes mellitus without complications; Z79.84 Long term (current) use of oral hypoglycemic drugs; Z79.01 Long term (current) use of anticoagulants; Z79.899 Other long term (current) drug therapy; Z20.822 Contact with and (suspected) exposure to COVID-19
CPT/HCPCS: 0241U; 36415; 71045; 71260; 74177; 80048; 80053; 81001; 83605; 84145; 84484; 85025; 86140; 87040; 96365; 96366; 96368; 96375; 99285; A9270; J1885; J2060; J2270; J2405; J2543; J7030; J7060; J7120; Q9967

== ENCOUNTER 2021-06-30 09:13 | Emergency (ER) | payer OTHER, MEDICARE, MEDICAID ==
--- NOTE | 2021-06-30 10:07 | EDM.PDOC ---
ED HPI GENERAL MEDICAL PROBLEM - General Chief Complaint: General Stated Complaint: UNABLE TO SWALLOW,DRY MOUTH Time Seen by Provider: 06/30/21 09:45 Source of Information: Reports: Patient, Family History Limitations: Reports: No Limitations - History of Present Illness INITIAL COMMENTS - FREE TEXT/NARRATIVE: 65-year-old male with several significant medical problems including anemia, peripheral edema, weakness, has developed oral sores and pain over the past several days. He had a bone marrow biopsy done a few days ago and is waiting for the results. He is bruising easily. His main concern is his lower extremity edema and the pain in his mouth. He is able to take frequent small sips of water but not much more. [facility]. Onset: Gradual Duration: Day(s): (Mouth sores have been worsening for the past 3 days) Associated Symptoms: Reports: Other (Increased lower extremity edema) - Related Data Allergies Allergy/AdvReac Type Severity Reaction Status Date / Time No Known Allergies Allergy Verified 06/30/21 09:18 Home Meds: Home Meds Albuterol Sulfate [Albuterol Sulfate Hfa] 2 puff INH Q6H PRN 04/21/19 [History] Budesonide/Formoterol [Symbicort 160-4.5 MCG] 2 puff INH BID 04/21/19 [History] Cholecalciferol (Vitamin D3) [D3-2000] 4,000 units PO BID 04/21/19 [History] Omeprazole 20 mg PO DAILY 04/21/19 [History] Tiotropium [Spiriva HandiHaler] 2 puff INH DAILY 04/21/19 [History] allopurinoL [Zyloprim] 300 mg PO DAILY 04/21/19 [History] atorvaSTATin [Lipitor] 80 mg PO DAILY 04/21/19 [History] Albuterol Sulfate 0.63 mg IH Q4H PRN 01/09/21 [History] Melatonin 3 mg PO BEDTIME 01/09/21 [History] metFORMIN HCl [Metformin HCl ER] 500 mg PO DAILY 01/09/21 [History] Riboflavin (Vitamin B2) [Vitamin B-2] 200 mg PO BID 03/31/21 [History] Metoprolol Succinate 25 mg PO DAILY 06/20/21 [History] Clotrimazole [Mycelex] 10 mg PO 5XDAY 6 Days #30 marty 06/30/21 [Rx] Past Medical History HEENT History: Reports: Impaired Vision Cardiovascular History: Reports: CAD, High Cholesterol, Hypertension, [place], PVD, Stents Respiratory History: Reports: COPD, SOB Musculoskeletal History: Reports: Gout Neurological History: Reports: CVA Endocrine/Metabolic History: Reports: Diabetes, Type II Hematologic History: Reports: Anemia Dermatologic History: Reports: Urticaria - Infectious Disease History Infectious Disease History: Reports: Chicken Pox, Measles, 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 Respiratory Surgical History: Reports: None GI Surgical History: Reports: Cholecystectomy Musculoskeletal Surgical History: Reports: None Dermatological Surgical History: Reports: None Social & Family History - Tobacco Use Tobacco Use Status *Q: Heavy Tobacco User Years of Tobacco use: 50 Packs/Tins Daily: 0.5 - Caffeine Use Caffeine Use: Reports: None - Recreational Drug Use Recreational Drug Use: No ED ROS GENERAL - Review of Systems Review Of Systems: See Below Constitutional: Reports: Malaise, Decreased Appetite. Denies: Fever, Chills HEENT: Reports: Throat Pain Respiratory: Denies: Shortness of Breath Cardiovascular: Reports: Dyspnea on Exertion. Denies: Chest Pain GI/Abdominal: Denies: Vomiting Skin: Reports: Pallor, Bruising Free Text/Narrative/Comment: According to his family his glucose levels have been higher ED EXAM, GENERAL - Physical Exam Exam: See Below Exam Limited By: No Limitations General Appearance: Alert, No Apparent Distress (Looks uncomfortable but not distressed, vitals are stable.) Eye Exam: Bilateral Eye: Other (Some pallor of the conjunctiva) Throat/Mouth: Other (Patient has widespread lesions in the oral cavity on the mucosa, tongue and posterior pharynx. There are thick white patches typical of Dodie, he also has some scattered shallow ulcerations) Neck: No: Lymphadenopathy (R), Lymphadenopathy (L) Respiratory/Chest: No Respiratory Distress, Lungs Clear Extremities: Other (Symmetric 1+ pitting edema to the knees of both lower extremities) Neurological: Alert, Oriented Psychiatric: Normal Affect, Normal Mood Skin Exam: Other (Widespread pallor and areas of bruising on the extremities) Course - Vital Signs Last Recorded V/S: Last Vital Signs Temp 96.9 F 06/30/21 09:45 Pulse 94 06/30/21 09:45 Resp 20 06/30/21 09:45 BP 128/72 06/30/21 09:45 Pulse Ox 98 06/30/21 09:45 - Re-Assessments/Exams Free Text/Narrative Re-Assessment/Exam: 06/30/21 10:25 A 6 inch Jarred wrap was applied to the left lower extremity which felt supportive and "good" to the patient. Until he can take oral fluids better, I would avoid diuretics and just use elevation and pressure to the legs. I did call him in 30 Mycelex lozenges to use 5 times a day over the next 6 days. [facility] the [facility] or receive further testing if difficulties persist. Departure - Departure Time of Disposition: 10:13 Disposition: Home, Self-Care 01 Clinical Impression: Oral candidiasis, Peripheral edema - Discharge Information Prescriptions: Clotrimazole [Mycelex] 10 mg PO 5XDAY 6 Days #30 marty Instructions: Oral Thrush, Adult Referrals: Winter Olguin, [employer] [Primary Care Provider] - Forms: ED Department Discharge Care Plan Goals: Suck on lozenges 5 times a day until gone, increase oral intake as tolerated. Wrap your feet with Jarred wraps and elevate legs when able to reduce swelling. Recheck in 2 or 3 days if not improving satisfactorily. A small dose of diuretic daily may be helpful with your peripheral edema once you are able to take normal liquids again, discussed this with your doctor at the [place]. Sepsis Event Note (ED) - Evaluation Sepsis Screening Result: No Definite Risk - Focused Exam Vital Signs: Vital Signs Temp Pulse Resp BP Pulse Ox 06/30/21 09:45 96.9 F 94 20 128/72 98
== END 2021-06-30 10:42 | disposition home or self-care (01) ==
LOC: JP.ED 09:13
DX: B37.0 Candidal stomatitis (principal); R60.0 Localized edema; I25.10 Atherosclerotic heart disease of native coronary artery without angina pectoris; E78.00 Pure hypercholesterolemia, unspecified; I10 Essential (primary) hypertension; I25.2 Old myocardial infarction; J44.9 Chronic obstructive pulmonary disease, unspecified; M10.9 Gout, unspecified; E11.9 Type 2 diabetes mellitus without complications; Z72.0 Tobacco use; Z79.84 Long term (current) use of oral hypoglycemic drugs; Z79.899 Other long term (current) drug therapy
CPT/HCPCS: 99283

== ENCOUNTER 2022-03-22 15:32 | Emergency (ER) | payer MEDICARE, MEDICAID ==
[2022-03-22] MEDS ORDERED: Sodium Chloride 0.9% 1,000 ML IV SCH (16:30)
[2022-03-22 16:51] LABS: ESTIMATED GFR 51 mL/min (>60)
[2022-03-22] MEDS ORDERED: Cefepime 2 GM in Sodium Chloride 0.9% 50 ML IV ONE (16:52)
== END 2022-03-22 18:16 ==
LOC: JP.ED 15:32
DX: A41.9 Sepsis, unspecified organism (principal); C92.00 Acute myeloblastic leukemia, not having achieved remission; J44.9 Chronic obstructive pulmonary disease, unspecified; I48.91 Unspecified atrial fibrillation; I10 Essential (primary) hypertension; E11.9 Type 2 diabetes mellitus without complications; I25.2 Old myocardial infarction; M10.9 Gout, unspecified; E78.00 Pure hypercholesterolemia, unspecified; Z95.5 Presence of coronary angioplasty implant and graft; Z86.73 Personal history of transient ischemic attack (TIA), and cerebral infarction without residual deficits; Z79.899 Other long term (current) drug therapy; Z79.01 Long term (current) use of anticoagulants; Z20.822 Contact with and (suspected) exposure to COVID-19
CPT/HCPCS: 36415; 71045; 80053; 83605; 84145; 85025; 87040; 87077; 93005; 96361; 96365; 99285; J0692; J7030; U0002

== ENCOUNTER 2022-06-07 13:47 | Emergency (ER) | payer MEDICARE, MEDICAID ==
[2022-06-07] MEDS ORDERED: Oxymetazoline 0.05% Nasal Spray 30 ML Bottle NAS ONE (19:33)
== END 2022-06-07 20:35 | disposition home or self-care (01) ==
LOC: JP.ED 13:47
DX: R04.0 Epistaxis (principal); D62 Acute posthemorrhagic anemia; D69.6 Thrombocytopenia, unspecified; I25.10 Atherosclerotic heart disease of native coronary artery without angina pectoris; J44.9 Chronic obstructive pulmonary disease, unspecified; C92.00 Acute myeloblastic leukemia, not having achieved remission; I10 Essential (primary) hypertension; E11.9 Type 2 diabetes mellitus without complications; F17.210 Nicotine dependence, cigarettes, uncomplicated; Z79.899 Other long term (current) drug therapy; Z90.49 Acquired absence of other specified parts of digestive tract
CPT/HCPCS: 30903; 36415; 36430; 80053; 83615; 84550; 85025; 86850; 86900; 86901; 86920; 86922; 99283; A9270; P9016; P9034